=== PATIENT | female | born 1945 | race Caucasian/White ===

== ENCOUNTER → 2016-06-21 | Outpatient (CLI) | payer MEDICARE, BC ==
--- NOTE | 2016-06-22 11:14 | MM ---
Reason for exam: screening (asymptomatic). Last mammogram was performed 1 year and 3 months ago. History: Patient is postmenopausal. Family history of breast cancer in maternal aunt at age 60, breast cancer in maternal cousin at age 60, and breast cancer in mother at age 60. Benign excisional biopsy of the right breast, March 2009. Took estrogen for 7 years beginning at age 50. Physical Findings: A clinical breast exam by your physician is recommended on an annual basis and results should be correlated with mammographic findings. MG 3D Screening Mammo W/Cad Bilateral CC, MLO, and CV view(s) were taken. Prior study comparison: March 15, 2015, right breast MG 3d work up w/cad RT. March 04, 2015, bilateral MG screening mammo w CAD. November 17, 2013, bilateral MG screening mammo w CAD. The breast tissue is almost entirely fat. No significant changes when compared with prior studies. ASSESSMENT: Benign, BI-RAD 2 RECOMMENDATION: Routine screening mammogram of both breasts in 1 year.
== END | disposition home or self-care (01) ==
LOC: RADMAMWWP 07:05
PROVIDERS: ATTEND Internal Medicine
DX: Z12.31 Encounter for screening mammogram for malignant neoplasm of breast (principal)
CPT/HCPCS: 77063; G0202

== ENCOUNTER → 2017-04-05 | Outpatient (CLI) | payer MEDICARE, BC ==
--- NOTE | 2017-04-05 09:31 | US ---
EXAMINATION TYPE: US abdomen complete DATE OF EXAM: 04/05/2017 COMPARISON: NONE CLINICAL HISTORY: Periumbilical Pain R10.33. EXAM MEASUREMENTS: Liver Length: 13.5 cm Gallbladder Wall: Surgically absent cm CBD: 0.4 cm Spleen: 10.6 cm Right Kidney: 9.2x3.9x3.9 cm Left Kidney: 10.0x4.4x3.5 cm Pancreas: Obscured by bowel gas Liver: Hyperechoic hepatic echotexture. Gallbladder: Surgically absent Evidence for sonographic Luna's sign: Surgically absent CBD: wnl Spleen: wnl Right Kidney: No hydronephrosis or masses seen 1.3cm lower pole calculi Left Kidney: No hydronephrosis or masses seen possible small calculi 0.4 cm lower pole Upper IVC: Obscured by overlying bowel gas portions seen wnl Abd Aorta: Obscured by overlying bowel gas portions seen wnl The liver is homogenous. The intrahepatic portion of the IVC and proximal abdominal aorta are within normal limits. The visualized portions of the pancreas are homogenous. The spleen is unremarkable. Kidneys are symmetric and free of hydronephrosis. No renal lesions are seen. IMPRESSION: 1. Nonobstructing 1.3 cm right lower pole renal calculus. The nonshadowing 4 mm left lower pole possi ble renal calculus. 2. Slightly increased hepatic echotexture suggesting underlying mild hepatic steatosis.
== END | disposition home or self-care (01) ==
LOC: RADUSWWP 06:49
PROVIDERS: ATTEND Internal Medicine
DX: N20.0 Calculus of kidney (principal)
CPT/HCPCS: 76700

== ENCOUNTER 2017-06-22 14:00 | Inpatient (IN) | payer MEDICARE, BC ==
[2017-06-22] MEDS ORDERED: SODIUM CHLORIDE 0.9% 1,000 ML IV STA (15:37)
[2017-06-22] MEDS ORDERED: ONDANSETRON 4 MG/2 ML VIAL IVP STA (15:37)
--- NOTE | 2017-06-22 15:50 | ED ---
General Adult HPI - General Chief complaint: Skin/Abscess/Foreign Body Stated complaint: Post OP issue DX Flu Time Seen by Provider: 06/22/17 15:24 Source: patient, RN notes reviewed Mode of arrival: ambulatory Limitations: no limitations - History of Present Illness Initial comments: Patient is a 71-year-old female who presents emergency room with multiple complaints. She states she saw her family doctor was advised the emergency room. She states that she had an abscess that was drained and groin area by Dr. Henrique Guillermo back around 2016. She states that she began feeling some symptoms just 2 days ago. She does admit to a history of MRSA and was advised come here to the emergency room for further evaluation. Patient states that she was prescribed Bactrim 2 days ago along with Tamiflu. She states that she's had symptoms of nausea vomiting diarrhea over the past 2 days. It is mid to some cough congestion. Patient is to some bodyaches. Patient states she's been unable to take these medications due to nausea vomiting. She also admits to history of kidney stones does feel some pain consistent with that as well. Currently comfortable at this time does not want any pain medication. She denies any other complaints currently. Patient denies any recent fever, chills, shortness of breath, chest pain, numbness or tingling , dysuria or hematuria, constipation or diarrhea, headaches or visual changes, or any other complaints. - Related Data Home Medications Medication Instructions Recorded Confirmed Clopidogrel [Plavix] 75 mg PO DAILY 06/22/17 06/22/17 Diltiazem HCl 30 mg PO DAILY 06/22/17 06/22/17 FLUoxetine HCL [PROzac] 40 mg PO DAILY 06/22/17 06/22/17 Gabapentin [Neurontin] 100 mg PO HS 06/22/17 06/22/17 Lisinopril [Prinivil] 10 mg PO DAILY 06/22/17 06/22/17 Omeprazole [PriLOSEC] 20 mg PO AC-BRKFST 06/22/17 06/22/17 Oseltamivir [Tamiflu] 75 mg PO Q12HR 06/22/17 06/22/17 Sulfamethox-Tmp 800-160Mg [Bactrim 1 tab PO Q12HR 06/22/17 06/22/17 DS 800-160 mg] Triamterene-Hctz 37.5-25Mg 1 tab PO DAILY 06/22/17 06/22/17 [Maxzide 37.5-25] Allergies Allergy/AdvReac Type Severity Reaction Status Date / Time clindamycin Allergy Rash/Hives Verified 06/22/17 16:12 codeine Allergy Rash/Hives Verified 06/22/17 16:12 hydromorphone [From Dilaudid] Allergy Rash/Hives Verified 06/22/17 16:12 iodine Allergy Rash/Hives Verified 06/22/17 16:12 morphine Allergy Rash/Hives Verified 06/22/17 16:12 Review of Systems ROS Statement: Those systems with pertinent positive or pertinent negative responses have been documented in the HPI. ROS Other: All systems not noted in ROS Statement are negative. Past Medical History Past Medical History: Diabetes Mellitus, Hyperlipidemia, Hypertension Additional Past Medical History / Comment(s): CVA History of Any Multi-Drug Resistant Organisms: None Reported Additional Past Surgical History / Comment(s): Knees, Abscess to groin area Past Psychological History: No Psychological Hx Reported Smoking Status: Never smoker Past Alcohol Use History: None Reported Past Drug Use History: None Reported General Exam - General Exam Comments Initial Comments: General: The patient is awake and alert, in no distress, and does not appear acutely ill. Eye: Pupils are equal, round and reactive to light, extra-ocular movements are intact. No nystagmus. There is normal conjunctiva bilaterally. No signs of icterus. Ears, nose, mouth and throat: There are moist mucous membranes and no oral lesions. Neck: The neck is supple, there is no tenderness or JVD. Cardiovascular: There is a regular rate and rhythm. No murmur, rub or gallop is appreciated. Respiratory: Lungs are clear to auscultation, respirations are non-labored, breath sounds are equal. No wheezes, stridor, rales, or rhonchi. Gastrointestinal: Soft, non-distended, non-tender abdomen without masses or organomegaly noted. There is no rebound or guarding present. No CVA tenderness. Bowel sounds are unremarkable. Musculoskeletal: Normal ROM, no tenderness. Strength 5/5. Sensation intact. Pulses equal bilaterally 2+. Neurological: A&O x 3. CN II-XII intact, There are no obvious motor or sensory deficits. Coordination appears grossly intact. Speech is normal. Skin: Skin is warm and dry and no rashes or lesions are noted. Psychiatric: Cooperative, appropriate mood & affect, normal judgment. : INTERNAL MEDICINE NURSE PRACTITIONER Basilia present for exam. Patient does have small abscess left labia majora. Mild redness. Limitations: no limitations Course Vital Signs 06/22/17 06/22/17 06/22/17 14:20 16:04 17:11 Temperature 99.9 F H 99.1 F Pulse Rate 85 78 781 H Respiratory 20 20 8 L Rate Blood Pressure 166/79 126/56 133/59 O2 Sat by Pulse 99 95 97 Oximetry EKG Findings - EKG Comments: EKG Findings:: EKG performed at 1549: A 12-lead EKG was performed and interpreted by me as showing the following: Rate is 76, and rhythm is normal sinus. There are normal QRS complexes and normal R-wave progression. ST segments have no elevation or depression, and TX segments appear normal. Medical Decision Making - Medical Decision Making Patient reexamined at this time shows no signs of distress. Patient does have abscess formation consistent with a Bartholin's abscess. Patient was sent in by family doctor. She states she's had this drained 3 times surgically. Most recently from Dr. Henrique Guillermo on the outside. Patient has been trying to take antibiotic has been unable to due to symptoms of nausea vomiting. Patient feeling better here the emergency room after fluids and nausea medication. Patient will be admitted to the hospital consult to surgery. Patient will be started on antibiotics - Lab Data Result diagrams: 06/22/17 16:00 06/22/17 16:00 Lab Results 06/22/17 06/22/17 06/22/17 Range/Units 16:00 16:00 16:00 WBC 5.6 (3.8-10.6) k/uL RBC 4.90 (3.80-5.40) m/uL Hgb 13.4 (11.4-16.0) gm/dL Hct 39.4 (34.0-46.0) % MCV 80.3 (80.0-100.0) fL MCH 27.3 (25.0-35.0) pg MCHC 34.0 (31.0-37.0) g/dL RDW 15.5 (11.5-15.5) % Plt Count 206 (150-450) k/uL Neutrophils % 69 % Lymphocytes % 15 % Monocytes % 11 % Eosinophils % 1 % Basophils % 1 % Neutrophils # 3.9 (1.3-7.7) k/uL Lymphocytes # 0.9 L (1.0-4.8) k/uL Monocytes # 0.6 (0-1.0) k/uL Eosinophils # 0.1 (0-0.7) k/uL Basophils # 0.0 (0-0.2) k/uL Sodium 137 (137-145) mmol/L Potassium 3.1 L (3.5-5.1) mmol/L Chloride 94 L (98-107) mmol/L Carbon Dioxide 27 (22-30) mmol/L Anion Gap 16 mmol/L BUN 24 H (7-17) mg/dL Creatinine 1.50 H (0.52-1.04) mg/dL Est GFR (MDRD) Af Amer 42 (>60 ml/min/1.73 sqM) Est GFR (MDRD) Non-Af 34 (>60 ml/min/1.73 sqM) Glucose 103 H (74-99) mg/dL Plasma Lactic Acid Derrick 1.1 (0.7-2.0) mmol/L Calcium 9.7 (8.4-10.2) mg/dL Total Bilirubin 0.8 (0.2-1.3) mg/dL AST 41 H (14-36) U/L ALT 28 (9-52) U/L Alkaline Phosphatase 95 (38-126) U/L Total Protein 7.5 (6.3-8.2) g/dL Albumin 4.3 (3.5-5.0) g/dL Urine Color Urine Appearance (Clear) Urine pH (5.0-8.0) Ur Specific [place] (1.001-1.035) Urine Protein (Negative) Urine Glucose (UA) (Negative) Urine Ketones (Negative) Urine Blood (Negative) Urine Nitrite (Negative) Urine Bilirubin (Negative) Urine Urobilinogen (<2.0) mg/dL Ur Leukocyte Esterase (Negative) Urine RBC (0-5) /hpf Urine WBC (0-5) /hpf Ur Squamous Epith Cells (0-4) /hpf Amorphous Sediment (None) /hpf Urine Bacteria (None) /hpf Hyaline Casts (0-2) /lpf Urine Mucus (None) /hpf 06/22/17 Range/Units 16:00 WBC (3.8-10.6) k/uL RBC (3.80-5.40) m/uL Hgb (11.4-16.0) gm/dL Hct (34.0-46.0) % MCV (80.0-100.0) fL MCH (25.0-35.0) pg MCHC (31.0-37.0) g/dL RDW (11.5-15.5) % Plt Count (150-450) k/uL Neutrophils % % Lymphocytes % % Monocytes % % Eosinophils % % Basophils % % Neutrophils # (1.3-7.7) k/uL Lymphocytes # (1.0-4.8) k/uL Monocytes # (0-1.0) k/uL Eosinophils # (0-0.7) k/uL Basophils # (0-0.2) k/uL Sodium (137-145) mmol/L Potassium (3.5-5.1) mmol/L Chloride (98-107) mmol/L Carbon Dioxide (22-30) mmol/L Anion Gap mmol/L BUN (7-17) mg/dL Creatinine (0.52-1.04) mg/dL Est GFR (MDRD) Af Amer (>60 ml/min/1.73 sqM) Est GFR (MDRD) Non-Af (>60 ml/min/1.73 sqM) Glucose (74-99) mg/dL Plasma Lactic Acid Derrick (0.7-2.0) mmol/L Calcium (8.4-10.2) mg/dL Total Bilirubin (0.2-1.3) mg/dL AST (14-36) U/L ALT (9-52) U/L Alkaline Phosphatase (38-126) U/L Total Protein (6.3-8.2) g/dL Albumin (3.5-5.0) g/dL Urine Color Yellow Urine Appearance Cloudy H (Clear) Urine pH 5.0 (5.0-8.0) Ur Specific [place] 1.016 (1.001-1.035) Urine Protein 1+ H (Negative) Urine Glucose (UA) Negative (Negative) Urine Ketones Trace H (Negative) Urine Blood Trace H (Negative) Urine Nitrite Negative (Negative) Urine Bilirubin Negative (Negative) Urine Urobilinogen 2.0 (<2.0) mg/dL Ur Leukocyte Esterase Negative (Negative) Urine RBC 6 H (0-5) /hpf Urine WBC 6 H (0-5) /hpf Ur Squamous Epith Cells 11 H (0-4) /hpf Amorphous Sediment Rare H (None) /hpf Urine Bacteria Rare H (None) /hpf Hyaline Casts 36 H (0-2) /lpf Urine Mucus Rare H (None) /hpf Disposition Clinical Impression: Bartholin's gland abscess, History of MRSA infection, Nausea vomiting and diarrhea, Influenza A Disposition: ADMITTED IP TO THIS HOSP Condition: Good Time of Disposition: 17:04
[2017-06-22 16:22] LABS: Basophils % (A) 1 %; Eosinophils # (A) 0.1 k/uL (0-0.7); Eosinophils % (A) 1 %; HCT 39.4 % (34.0-46.0); HGB 13.4 gm/dL (11.4-16.0); Lymphocytes # (A) 0.9 k/uL (1.0-4.8); Lymphocytes % (A) 15 %; MCH 27.3 pg (25.0-35.0); MCV 80.3 fL (80.0-100.0); Mean Platelet Volume 7.8; Monocytes # (A) 0.6 k/uL (0-1.0); Monocytes % (A) 11 %; Neutrophils # (A) 3.9 k/uL (1.3-7.7); Neutrophils % (A) 69 %; Platelet Count 206 k/uL (150-450); RDW 15.5 % (11.5-15.5); WBC 5.6 k/uL (3.8-10.6)
[2017-06-22 16:28] LABS: Amorphous Sediment,Urine Rare /hpf; Appearance,Urine Cloudy (Clear); Bacteria,Urine Rare /hpf; Bilirubin,Urine Negative (Negative); Blood,Urine Trace (Negative); Color,Urine Yellow; Glucose,Urine (UA) Negative (Negative); Hyaline Casts,Urine 36 /lpf (0-2); Ketones,Urine Trace (Negative); Leukocyte Esterase,Urine Negative (Negative); Mucus,Urine Rare /hpf; Nitrite,Urine Negative (Negative); Protein,Urine 1+ (Negative); RBC,Urine 6 /hpf (0-5); Specific Gravity,Urine 1.016 (1.001-1.035); Squamous Epithelial Cell,Urine 11 /hpf (0-4); WBC,Urine 6 /hpf (0-5)
[2017-06-22 16:31] LABS: Albumin 4.3 g/dL (3.5-5.0); Calcium 9.7 mg/dL (8.4-10.2); Potassium 3.1 mmol/L (3.5-5.1); Total Bilirubin 0.8 mg/dL (0.2-1.3); Total Protein 7.5 g/dL (6.3-8.2)
--- NOTE | 2017-06-22 16:47 | XR ---
EXAMINATION TYPE: XR chest 2V DATE OF EXAM: 06/22/2017 COMPARISON: NONE HISTORY: Cough and congestion TECHNIQUE: Frontal and lateral views of the chest are obtained. FINDINGS: There is no heart failure nor confluent pneumonic infiltrate. Costophrenic angles are patrick r. Thoracic aorta is atheromatous. Bony thorax is intact. IMPRESSION: No active cardiopulmonary disease.
[2017-06-22] MEDS ORDERED: ACETAMINOPHEN TAB 325 MG TAB PO PRN (17:05)
[2017-06-22] MEDS ORDERED: NALOXONE 0.4 MG/ML 1 ML VIAL IV PRN (17:05)
[2017-06-22] MEDS ORDERED: LORazepam 2 MG/ML INJ IV PRN (17:05)
[2017-06-22] MEDS ORDERED: ONDANSETRON 4 MG/2 ML VIAL IVP PRN (17:05)
[2017-06-22] MEDS ORDERED: VANCOMYCIN IV PER PHARMACY 1 EACH MISC MISCELLANE PRN (18:21)
[2017-06-22] MEDS ORDERED: VANCOMYCIN 1,500 MG in SODIUM CHLORIDE 0.9% 250 ML IVPB STA (18:31)
[2017-06-22] MEDS: HYDROcodone/APAP 5-325MG 1 EACH TAB PO PRN (19:41)
[2017-06-23] MEDS: HYDROcodone/APAP 5-325MG 1 EACH TAB PO PRN ×2 (02:12→20:18)
[2017-06-23 07:56] LABS: Basophils % (A) 1 %; Eosinophils # (A) 0.1 k/uL (0-0.7); Eosinophils % (A) 4 %; HCT 36.8 % (34.0-46.0); HGB 12.3 gm/dL (11.4-16.0); Lymphocytes # (A) 0.9 k/uL (1.0-4.8); Lymphocytes % (A) 22 %; MCH 27.6 pg (25.0-35.0); MCHC 33.4 g/dL (31.0-37.0); MCV 82.7 fL (80.0-100.0); Mean Platelet Volume 7.6; Monocytes # (A) 0.4 k/uL (0-1.0); Monocytes % (A) 11 %; Neutrophils # (A) 2.4 k/uL (1.3-7.7); Neutrophils % (A) 59 %; Platelet Count 170 k/uL (150-450); RBC 4.44 m/uL (3.80-5.40); RDW 14.6 % (11.5-15.5); WBC 4.1 k/uL (3.8-10.6)
[2017-06-23 08:08] LABS: Albumin 3.5 g/dL (3.5-5.0); Calcium 9.3 mg/dL (8.4-10.2); Potassium 3.3 mmol/L (3.5-5.1); Total Bilirubin 0.7 mg/dL (0.2-1.3); Total Protein 6.4 g/dL (6.3-8.2)
[2017-06-23] MEDS ORDERED: VANCOMYCIN 1,500 MG in SODIUM CHLORIDE 0.9% 250 ML IVPB SCH (09:00)
[2017-06-23 11:17] VITALS: BMI 31.8
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
[2017-06-23] MEDS: GABAPENTIN 100 MG CAP PO SCH (20:19)
[2017-06-23] MEDS ORDERED: Potassium Replacement Protocol 1 EACH MISC MISCELLANE PRN (22:17)
[2017-06-23] MEDS: POTASSIUM CHLORIDE 10 MEQ in WATER FOR INJECTION 1 100ML.BAG IVPB SCH (22:40)
[2017-06-24] MEDS: POTASSIUM CHLORIDE 10 MEQ in WATER FOR INJECTION 1 100ML.BAG IVPB SCH (01:08)
[2017-06-24 05:24] LABS: HCT 38.1 % (34.0-46.0); HGB 12.4 gm/dL (11.4-16.0); MCH 26.8 pg (25.0-35.0); MCHC 32.6 g/dL (31.0-37.0); MCV 82.4 fL (80.0-100.0); Mean Platelet Volume 7.8; Platelet Count 193 k/uL (150-450); RBC 4.62 m/uL (3.80-5.40); RDW 14.4 % (11.5-15.5); WBC 3.3 k/uL (3.8-10.6)
[2017-06-24 05:37] LABS: Anion Gap 9 mmol/L; Blood Urea Nitrogen 21 mg/dL (7-17); Calcium 8.9 mg/dL (8.4-10.2); Carbon Dioxide 29 mmol/L (22-30); Chloride 102 mmol/L (98-107); Glucose 89 mg/dL (74-99); Potassium 3.5 mmol/L (3.5-5.1); Sodium 140 mmol/L (137-145)
[2017-06-24] MEDS: VANCOMYCIN 1,500 MG in SODIUM CHLORIDE 0.9% 250 ML IVPB SCH (07:33)
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
[2017-06-24] MEDS ORDERED: IV FLUID CONTINUATION 400 ML IV ONE (09:17)
[2017-06-24] MEDS ORDERED: LIDOCAINE 1% INJ 10MG/ML (20 ML MDV) ONE (09:17)
[2017-06-24] MEDS ORDERED: fentaNYL (PF) 50 MCG/ML 2 ML AMP ONE (09:17)
[2017-06-24] MEDS ORDERED: PROPOFOL 10 MG/ML 20 ML VIAL IV ONE (09:17)
[2017-06-24] MEDS ORDERED: MIDAZOLAM 2 MG/2 ML VIAL ONE (09:17)
[2017-06-24] MEDS ORDERED: SUCCINYLCHOLINE CHLORIDE 100 MG/5 ML SYR IV ONE (09:17)
[2017-06-24] MEDS ORDERED: LACTATED RINGERS 1,000 ML IV ONE (09:35)
--- NOTE | 2017-06-24 10:07 | P.OP ---
Date of Procedure: 06/24/17 Preoperative Diagnosis: Left labial abscess Postoperative Diagnosis: Same Procedure(s) Performed: Incision and drainage left labial abscess Anesthesia: IVELISSE Surgeon: Delmis Amado Pathology: other Condition: stable Disposition: PACU Indications for Procedure: 71 yrs old female with recurrent abscess. This time has left labial abscess Description of Procedure: Patient was placed in lithotomy position in OR after induction of anesthesia. Skin prepped with soap. 1x1x2 cm incision was made along left labia at the site of maximum fluctuance .3 cc of pus and exudates drained. Cultures sent. Cavity washed with half strength hydrogen peroxide.Hemostasis checked. Final post debridement measurement 1x1x2 cm. Packed with aquacel silver rope. Clean dressings applied.
[2017-06-24] MEDS ORDERED: MEPERIDINE 50 MG/ML SYRINGE IVP ONE ×2 (10:15→10:30)
[2017-06-24] MEDS ORDERED: diphenhydrAMINE 50 MG/ML 1 ML VIAL IVP ONE (10:15)
[2017-06-24] MEDS: KETOROLAC 30 MG/ML 1 ML VIAL IVP SCH ×3 (10:48→23:43)
[2017-06-24] MEDS: PANTOPRAZOLE 40 MG TABLET PO SCH (12:16)
[2017-06-24] MEDS: FLUoxetine HCL 20 MG CAP PO SCH (12:16)
--- NOTE | 2017-06-24 12:59 | P.PN ---
Subjective Patient was admitted for left-sided Bartholin's abscess patient underwent incision and drainage patient is clinically doing well except for some nausea. Kidney function did improve. Patient is on IV vancomycin. Pain is better controlled. Constitutional: Denied any fatigue denied any fever. Cardio vascular: denied any chest pain, palpitations Gastrointestinal denied any vomiting Pulmonary: Denied any shortness of breath cough Neurologic denied any new focal deficits Objective - Vital Signs Vital signs: Vital Signs Temp 98.3 F 06/24/17 12:11 Pulse 68 06/24/17 12:11 Resp 20 06/24/17 12:11 BP 128/67 06/24/17 12:11 Pulse Ox 95 06/24/17 12:11 Intake & Output 06/23/17 06/24/17 06/24/17 18:59 06:59 18:59 Intake Total 120 600 Output Total 4 6 Balance 120 -4 594 Weight 81.647 kg Intake: IV 600 Oral 120 Output: Urine 1 Stool 2 1 Urine/Stool Mix 1 Estimated Blood Loss 5 Other: Voiding Method Toilet Toilet Toilet # Voids 2 - Exam PHYSICAL EXAMINATION: GENERAL: The patient is alert and oriented x3, not in any acute distress. Well developed, well nourished. HEENT: Pupils are round and equally reacting to light. EOMI. No scleral icterus. No conjunctival pallor. Normocephalic, atraumatic. No pharyngeal erythema. No thyromegaly. CARDIOVASCULAR: S1 and S2 present. No murmurs, rubs, or gallops. PULMONARY: Chest is clear to auscultation, no wheezing or crackles. ABDOMEN: Soft, nontender, nondistended, normoactive bowel sounds. No palpable organomegaly. MUSCULOSKELETAL: No joint swelling or deformity. EXTREMITIES: No cyanosis, clubbing, or pedal edema. Patient is status post incision and drainage of the left inguinal area NEUROLOGICAL: Gross neurological examination did not reveal any focal deficits. SKIN: No rashes. - Labs CBC & Chem 7: 06/24/17 04:59 06/24/17 04:59 Labs: Abnormal Lab Results - Last 24 Hours (Table) 06/24/17 06/24/17 Range/Units 04:59 04:59 WBC 3.3 L (3.8-10.6) k/uL BUN 21 H (7-17) mg/dL Microbiology - Last 24 Hours (Table) 06/22/17 16:00 Blood Culture - Preliminary Blood No Growth after 24 hours Assessment and Plan Plan: -sepsis secondary to left Bartholin's abscess and patient is status post incision and drainage and patient is on IV vancomycin -Acute renal dysfunction: Secondary to hypotension, infection prerenal azotemia and diuretic therapy. Improved with IV fluids which were discontinued patient is on oral hydration -Hypertension hold off antidepressant medications because of hypotension -hypokalemia: Secondary to diuretic therapy potassium will be supplemented diuretics were held hypokalemia improved after supplementation -history of TIA in the past: Held Plavix temporarily for incision and drainage. Can be restarted tomorrow -Hyperlipidemia continue with statin
[2017-06-24] MEDS: HYDROcodone/APAP 5-325MG 1 EACH TAB PO PRN ×2 (14:15→20:24)
[2017-06-24] MEDS: GABAPENTIN 100 MG CAP PO SCH (20:21)
[2017-06-25] MEDS: KETOROLAC 30 MG/ML 1 ML VIAL IVP SCH ×4 (05:50→23:57)
[2017-06-25] MEDS ORDERED: VANCOMYCIN TROUGH DUE 1 EACH MISC MISCELLANE ONE (08:00)
[2017-06-25 08:06] LABS: Anion Gap 8 mmol/L; Blood Urea Nitrogen 21 mg/dL (7-17); Calcium 8.9 mg/dL (8.4-10.2); Carbon Dioxide 28 mmol/L (22-30); Chloride 105 mmol/L (98-107); Glucose 93 mg/dL (74-99); Potassium 3.9 mmol/L (3.5-5.1); Sodium 141 mmol/L (137-145)
[2017-06-25] MEDS: PANTOPRAZOLE 40 MG TABLET PO SCH (08:58)
[2017-06-25] MEDS: FLUoxetine HCL 20 MG CAP PO SCH (08:58)
[2017-06-25] MEDS: VANCOMYCIN 1,500 MG in SODIUM CHLORIDE 0.9% 250 ML IVPB SCH (09:01)
--- NOTE | 2017-06-25 10:24 | CDI ---
Last Revision, April 2017 Documentation Clarification Form Date: 06/25/2017 10:12:00 AM From: Omaira Duran Admit Date: 06/22/2017 5:05:00 PM Patient Name: Megan Briceño Visit Number: [id number] ATTENTION: The Clinical Documentation Specialists (CDI) and [facility] Coding Staff appreciate your assistance in clarifying documentation. Please respond to the clarification below the line at the bottom and electronically sign. The CDI & [facility] Coding staff will review the response and follow-up if needed. Please note: Queries are made part of the Legal Health Record. If you have any questions, please contact the author of this message via ITS. Dr. Elgin Damon 'Acute Renal Dysfunction' was documented in the H&P and Progress note on 06/24. History/Risk Factors: Sepsis / abscess Patient has had nausea, vomiting, diarrhea for 2 days Positive Influenza A Diuretic therapy - currently being held per H&P Clinical Indicators: BUN/Cr/GFR on admission: 24/1.50/34 on 18: 21/0.99/56 Treatment: IV Fluid bolus Lab Monitoring Diuretic therapy held In order to capture the severity of condition, please clarify if the condition signifies: Acute renal failure Other, please specify Unable to determine Please continue to document in your progress notes and discharge summary in order to capture severity of illness and risk of mortality. Include clinical findings that support your diagnosis. Please refer to my progress note MTDD
--- NOTE | 2017-06-25 11:12 | P.PN ---
Subjective Patient was admitted for left-sided Bartholin's abscess patient underwent incision and drainage patient is clinically doing well except for some nausea. Kidney function did improve. Patient is on IV vancomycin. Pain is better controlled. 06/25/2017 Patient is clinically doing well and kidney function improved awaiting wound cultures continue with vancomycin. Constitutional: Denied any fatigue denied any fever. Cardio vascular: denied any chest pain, palpitations Gastrointestinal denied any vomiting Pulmonary: Denied any shortness of breath cough Neurologic denied any new focal deficits Objective - Vital Signs Vital signs: Vital Signs Temp 97.9 F 06/25/17 07:00 Pulse 67 06/25/17 07:00 Resp 18 06/25/17 07:00 BP 145/75 06/25/17 07:00 Pulse Ox 95 06/25/17 07:00 Intake & Output 06/24/17 06/25/17 06/25/17 18:59 06:59 18:59 Intake Total 960 100 Output Total 8 Balance 952 100 Intake: IV 600 Oral 360 100 Output: Urine 1 Stool 2 Estimated Blood Loss 5 Other: Voiding Method Toilet Toilet # Voids 3 2 - Exam PHYSICAL EXAMINATION: GENERAL: The patient is alert and oriented x3, not in any acute distress. Well developed, well nourished. HEENT: Pupils are round and equally reacting to light. EOMI. No scleral icterus. No conjunctival pallor. Normocephalic, atraumatic. No pharyngeal erythema. No thyromegaly. CARDIOVASCULAR: S1 and S2 present. No murmurs, rubs, or gallops. PULMONARY: Chest is clear to auscultation, no wheezing or crackles. ABDOMEN: Soft, nontender, nondistended, normoactive bowel sounds. No palpable organomegaly. MUSCULOSKELETAL: No joint swelling or deformity. EXTREMITIES: No cyanosis, clubbing, or pedal edema. Patient is status post incision and drainage of the left inguinal area NEUROLOGICAL: Gross neurological examination did not reveal any focal deficits. SKIN: No rashes. - Labs CBC & Chem 7: 06/24/17 04:59 06/25/17 07:31 Labs: Abnormal Lab Results - Last 24 Hours (Table) 06/25/17 Range/Units 07:31 BUN 21 H (7-17) mg/dL Microbiology - Last 24 Hours (Table) 06/24/17 09:37 Gram Stain - Preliminary Labia Wound Culture - Preliminary 06/24/17 09:37 Anaerobic Culture - Preliminary Labia 06/22/17 16:00 Blood Culture - Preliminary Blood No Growth after 48 hours Assessment and Plan Plan: -sepsis secondary to left Bartholin's abscess and patient is status post incision and drainage and patient is on IV vancomycin -Acute renal dysfunction: Secondary to hypotension, infection prerenal azotemia and diuretic therapy. Improved with IV fluids which were discontinued patient is on oral hydration. -Hypertension hold off antidepressant medications because of hypotension -hypokalemia: Secondary to diuretic therapy potassium will be supplemented diuretics were held hypokalemia improved after supplementation -history of TIA in the past: Held Plavix temporarily for incision and drainage. Can be restarted tomorrow -Hyperlipidemia continue with statin
--- NOTE | 2017-06-25 13:12 | P.PN ---
Subjective Progress Note Date: 06/25/17 71-year-old female seen and examined at bedside. The packing was removed from the left side labia were patient had undergone an incision and drainage for left -sided batholin abscess. Patient states there is less discomfort in the clinical area. Wound cultures are pending. Wound care to the left labia packing using Aquacel silver rope change every 24 hours was reinforced with the patient Objective - Vital Signs Vital signs: Vital Signs Temp 97.9 F 06/25/17 07:00 Pulse 67 06/25/17 08:00 Resp 18 06/25/17 08:00 BP 145/75 06/25/17 07:00 Pulse Ox 95 06/25/17 07:00 Intake & Output 06/24/17 06/25/17 06/25/17 18:59 06:59 18:59 Intake Total 960 100 Output Total 8 1 Balance 952 100 -1 Intake: IV 600 Oral 360 100 Output: Urine 1 Stool 2 1 Estimated Blood Loss 5 Other: Voiding Method Toilet Toilet Toilet # Voids 3 2 - Exam Focused exam Left labia packing was removed decrease tenderness decreased swelling at surgical site no odor noted patient states noted improvement. The left labia incision and drainage site packing reapplied using Aquacel silver rope - Labs CBC & Chem 7: 06/24/17 04:59 06/26/17 07:24 Labs: Abnormal Lab Results - Last 24 Hours (Table) 06/25/17 Range/Units 07:31 BUN 21 H (7-17) mg/dL Microbiology - Last 24 Hours (Table) 06/24/17 09:37 Gram Stain - Preliminary Labia Wound Culture - Preliminary 06/24/17 09:37 Anaerobic Culture - Preliminary Labia 06/22/17 16:00 Blood Culture - Preliminary Blood No Growth after 48 hours Assessment and Plan Assessment: Impression Present on admission left labia pain and swelling onset 3 days prior failed outpatient treatment Bactrim Incision and drainage done on June 24 left labia abscess History of right labia abscess incision and drainage in March 2017 Plan Wound care left labia use Aquacel silver rope change every 24 hours Follow up on the pending wound cultures Pain control IV vancomycin as ordered Will sign off follow-up in the outpatient setting Progress note dictated for Dr. bowens The above impression and plan of care have been discussed and directed by signing physician. Jillian Black nurse practitioner acting as scribe for signing physician.
[2017-06-25] MEDS: HYDROcodone/APAP 5-325MG 1 EACH TAB PO PRN (20:00)
[2017-06-25] MEDS: GABAPENTIN 100 MG CAP PO SCH (20:00)
[2017-06-25] MEDS: ALBUTEROL NEBULIZED 2.5 MG/3 ML INHALATION SCH (20:02)
[2017-06-26] MEDS: KETOROLAC 30 MG/ML 1 ML VIAL IVP SCH ×4 (06:45→23:22)
[2017-06-26 07:59] LABS: Anion Gap 8 mmol/L; Blood Urea Nitrogen 17 mg/dL (7-17); Calcium 8.8 mg/dL (8.4-10.2); Carbon Dioxide 29 mmol/L (22-30); Chloride 105 mmol/L (98-107); Glucose 99 mg/dL (74-99); Potassium 3.4 mmol/L (3.5-5.1); Sodium 142 mmol/L (137-145)
[2017-06-26] MEDS: PANTOPRAZOLE 40 MG TABLET PO SCH (08:13)
[2017-06-26] MEDS: VANCOMYCIN 1,500 MG in SODIUM CHLORIDE 0.9% 250 ML IVPB SCH (08:13)
[2017-06-26] MEDS: FLUoxetine HCL 20 MG CAP PO SCH (08:13)
[2017-06-26] MEDS: ALBUTEROL NEBULIZED 2.5 MG/3 ML INHALATION SCH ×4 (09:12→19:30)
[2017-06-26] MEDS ORDERED: POTASSIUM CHLORIDE ER 20 MEQ TAB.ER PO STA (11:12)
--- NOTE | 2017-06-26 11:35 | P.PN ---
Subjective Patient was admitted for left-sided Bartholin's abscess patient underwent incision and drainage patient is clinically doing well except for some nausea. Kidney function did improve. Patient is on IV vancomycin. Pain is better controlled. 06/25/2017 Patient is clinically doing well and kidney function improved awaiting wound cultures continue with vancomycin. 06/26/2017 Awaiting wound cultures patient is otherwise clinically doing well patient has MRSA since studies are pending Constitutional: Denied any fatigue denied any fever. Cardio vascular: denied any chest pain, palpitations Gastrointestinal denied any vomiting Pulmonary: Denied any shortness of breath cough Neurologic denied any new focal deficits Objective - Vital Signs Vital signs: Vital Signs Temp 98 F 06/25/17 23:00 Pulse 64 06/26/17 09:22 Resp 18 06/26/17 08:00 BP 132/78 06/26/17 07:00 Pulse Ox 98 06/26/17 07:00 Intake & Output 06/25/17 06/26/17 06/26/17 18:59 06:59 18:59 Intake Total 650 540 Output Total 2 Balance 648 540 Weight 81.647 kg Intake: Intake, IV Titration 250 Amount Vancomycin 1,500 mg In 250 Sodium Chloride 0.9% 250 ml @ 125 mls/hr IVPB Q24HR [facility] Rx#:[id number] Oral 400 540 Output: Stool 2 Other: Voiding Method Toilet Toilet Toilet # Voids 2 - Exam PHYSICAL EXAMINATION: GENERAL: The patient is alert and oriented x3, not in any acute distress. Well developed, well nourished. HEENT: Pupils are round and equally reacting to light. EOMI. No scleral icterus. No conjunctival pallor. Normocephalic, atraumatic. No pharyngeal erythema. No thyromegaly. CARDIOVASCULAR: S1 and S2 present. No murmurs, rubs, or gallops. PULMONARY: Chest is clear to auscultation, no wheezing or crackles. ABDOMEN: Soft, nontender, nondistended, normoactive bowel sounds. No palpable organomegaly. MUSCULOSKELETAL: No joint swelling or deformity. EXTREMITIES: No cyanosis, clubbing, or pedal edema. Patient is status post incision and drainage of the left inguinal area NEUROLOGICAL: Gross neurological examination did not reveal any focal deficits. SKIN: No rashes. - Labs CBC & Chem 7: 06/24/17 04:59 06/26/17 07:24 Labs: Abnormal Lab Results - Last 24 Hours (Table) 06/26/17 Range/Units 07:24 Potassium 3.4 L (3.5-5.1) mmol/L Microbiology - Last 24 Hours (Table) 06/24/17 09:37 Gram Stain - Preliminary Labia Wound Culture - Preliminary Presumptive MRSA 06/22/17 16:00 Blood Culture - Preliminary Blood No Growth after 72 hours Assessment and Plan Plan: -sepsis secondary to left Bartholin's abscess and patient is status post incision and drainage and patient is on IV vancomycin -Acute renal dysfunction: Secondary to hypotension, infection prerenal azotemia and diuretic therapy. Improved with IV fluids which were discontinued patient is on oral hydration. -Hypertension hold off antidepressant medications because of hypotension -hypokalemia: Secondary to diuretic therapy potassium will be supplemented diuretics were held hypokalemia improved after supplementation -history of TIA in the past: Held Plavix temporarily for incision and drainage. Plavix will be restarted today -Hyperlipidemia continue with statin
--- NOTE | 2017-06-26 13:04 | P.PN ---
Subjective Progress Note Date: 06/26/17 71-year-old female seen and examined. Patient states there is less swelling in the labia on the left side. Patient states is less tenderness as well. Urinating no difficulty. No frequent stooling. Patient is postop incision and drainage of a left sided Bartholin abscess wound culture presumptive MRSA on a preliminary Objective - Vital Signs Vital signs: Vital Signs Temp 98 F 06/25/17 23:00 Pulse 68 06/26/17 12:18 Resp 18 06/26/17 08:00 BP 132/78 06/26/17 07:00 Pulse Ox 98 06/26/17 07:00 Intake & Output 06/25/17 06/26/17 06/26/17 18:59 06:59 18:59 Intake Total 650 540 Output Total 2 Balance 648 540 Weight 81.647 kg Intake: Intake, IV Titration 250 Amount Vancomycin 1,500 mg In 250 Sodium Chloride 0.9% 250 ml @ 125 mls/hr IVPB Q24HR [facility] Rx#:[id number] Oral 400 540 Output: Stool 2 Other: Voiding Method Toilet Toilet Toilet # Voids 2 - Exam Focused exam The left labia incision and drainage site packing reapplied using Aquacel silver rope patient states less tenderness less swelling from the left labia has been up to the shower - Labs CBC & Chem 7: 06/24/17 04:59 06/26/17 07:24 Labs: Abnormal Lab Results - Last 24 Hours (Table) 06/26/17 Range/Units 07:24 Potassium 3.4 L (3.5-5.1) mmol/L Microbiology - Last 24 Hours (Table) 06/24/17 09:37 Gram Stain - Preliminary Labia Wound Culture - Preliminary Presumptive MRSA 06/22/17 16:00 Blood Culture - Preliminary Blood No Growth after 72 hours Assessment and Plan Assessment: Impression Present on admission left labia pain and swelling onset 3 days prior failed outpatient treatment Bactrim Incision and drainage done on June 24 left labia abscess History of right labia abscess incision and drainage in March 2017 Plan Wound care left labia use Aquacel silver rope change every 24 hours Follow up on the pending wound cultures Pain control At the time of discharge Bactrim DS one tablet twice a day for 10 days Will sign off follow-up in the outpatient setting Progress note dictated for Dr. bowens The above impression and plan of care have been discussed and directed by signing physician. Jillian Black nurse practitioner acting as scribe for signing physician.
[2017-06-26] MEDS: HYDROcodone/APAP 5-325MG 1 EACH TAB PO PRN ×2 (16:01→20:17)
[2017-06-26] MEDS: GABAPENTIN 100 MG CAP PO SCH (20:18)
[2017-06-26 23:18] VITALS: RESP 16
[2017-06-27] MEDS: KETOROLAC 30 MG/ML 1 ML VIAL IVP SCH ×2 (05:24→11:43)
--- NOTE | 2017-06-27 07:26 | CDI ---
Last Revision, April 2017 Documentation Clarification Form Date: 06/25/2017 10:12:00 AM From: Omaira Duran Admit Date: 06/22/2017 5:05:00 PM Patient Name: Megan Briceño Visit Number: [id number] ATTENTION: The Clinical Documentation Specialists (CDI) and [facility] Coding Staff appreciate your assistance in clarifying documentation. Please respond to the clarification below the line at the bottom and electronically sign. The CDI & [facility] Coding staff will review the response and follow-up if needed. Please note: Queries are made part of the Legal Health Record. If you have any questions, please contact the author of this message via ITS. Dr. Elgin Damon 'Acute Renal Dysfunction' was documented in the H&P and Progress note on 06/24. Continuing to document the same through to 06/26. History/Risk Factors: Sepsis 06/22 abscess Patient has had nausea, vomiting, diarrhea for 2 days Positive Influenza A Diuretic therapy - currently being held per H&P Clinical Indicators: BUN/Cr/GFR on admission: 24/1.50/34 on 18: 21/0.99/56 Treatment: IV Fluid bolus Lab Monitoring Diuretic therapy held In order to capture the severity of condition, please clarify if the condition signifies: Acute renal failure Other, please specify Unable to determine Please continue to document in your progress notes and discharge summary in order to capture severity of illness and risk of mortality. Include clinical findings that support your diagnosis. Acute renal failure due to diuretics and Bactrim MTDD
[2017-06-27 07:47] VITALS: TEMP 97.6
[2017-06-27] MEDS: PANTOPRAZOLE 40 MG TABLET PO SCH (08:03)
[2017-06-27] MEDS: VANCOMYCIN 1,500 MG in SODIUM CHLORIDE 0.9% 250 ML IVPB SCH (08:03)
[2017-06-27] MEDS: FLUoxetine HCL 20 MG CAP PO SCH (08:03)
[2017-06-27] MEDS: ALBUTEROL NEBULIZED 2.5 MG/3 ML INHALATION SCH ×3 (08:31→16:43)
[2017-06-27] MEDS ORDERED: CLOPIDOGREL 75 MG TAB PO SCH (09:00)
[2017-06-27 09:03] LABS: Anion Gap 8 mmol/L; Blood Urea Nitrogen 18 mg/dL (7-17); Calcium 8.7 mg/dL (8.4-10.2); Carbon Dioxide 28 mmol/L (22-30); Chloride 106 mmol/L (98-107); Glucose 97 mg/dL (74-99); Potassium 3.6 mmol/L (3.5-5.1); Sodium 142 mmol/L (137-145)
[2017-06-27 15:20] VITALS: BP 132/68; PULSE 79
--- NOTE | 2017-06-27 16:58 | P.DS ---
Providers Date of admission: 06/22/17 17:05 Expected date of discharge: 06/27/17 Attending physician: Elgin Damon Consults: 06/23/17 09:19 Consult Physician Routine Consulting Provider: Marce Cruz Consult Reason/Comments: bartholins Abscess Do you want consulting provider notified?: Already Contacted Primary care physician: Letitia Worthington Hospital Course: Final Diagnoses: -sepsis secondary to left Bartholin's abscess with MRSA,status post incision and drainage and patient is on IV vancomycin -Acute renal dysfunction: Secondary to hypotension, infection prerenal azotemia and diuretic therapy. Improved with IV fluids which were discontinued patient is on oral hydration. -Hypertension hold off antidepressant medications because of hypotension -hypokalemia: Secondary to diuretic therapy potassium will be supplemented diuretics were held hypokalemia improved after supplementation -history of TIA on plavix -Hyperlipidemia continue with statin Hospital course:Patient was admitted for left-sided Bartholin's abscess patient underwent incision and drainage. Maintained on IV vancomycin. Kidney function improved. Maintained on IV fluid hydration and IV vancomycin. Wound culture positive for MRSA. Significant clinical improvement.. Initially on admission patient presented with mild acute renal failure and had been on Bactrim DS. Considered discharging on Cipro; discussed with infectious disease-given Cipro failure, will send home on Bactrim DS and repeat BMP in 3 days for close monitoring of renal function. Physical Exam:VSS,GENERAL: alert and oriented x3, not in any acute distress.CARDIOVASCULAR: S1 and S2 present. No murmurs, rubs, or gallops. PULMONARY: Chest is clear to auscultation, no wheezing or crackles. ABDOMEN: Soft, nontender, nondistended, normoactive bowel sounds. NEUROLOGICAL: Gross neurological examination did not reveal any focal deficits. The impression and plan of care has been dictated as directed. : I performed a history and examination of this patient, discussed the same with the dictator. I agree with the dictator's note ,documented as a scribe. Any additional findings or plans will be noted. Time taken: Greater than 35 minutes Patient Condition at Discharge: Stable Plan - Discharge Summary Discharge Rx Participant: Yes New Discharge Prescriptions: New Sulfamethox-Tmp 800-160Mg [Bactrim DS 800-160 mg] 1 tab PO BID #20 tab Continue Clopidogrel [Plavix] 75 mg PO DAILY Omeprazole [PriLOSEC] 20 mg PO AC-BRKFST Gabapentin [Neurontin] 100 mg PO HS FLUoxetine HCL [PROzac] 40 mg PO DAILY Discontinued Triamterene-Hctz 37.5-25Mg [Maxzide 37.5-25] 1 tab PO DAILY Lisinopril [Prinivil] 10 mg PO DAILY Sulfamethox-Tmp 800-160Mg [Bactrim DS 800-160 mg] 1 tab PO Q12HR Oseltamivir [Tamiflu] 75 mg PO Q12HR Diltiazem HCl 30 mg PO DAILY Discharge Medication List Clopidogrel [Plavix] 75 mg PO DAILY 06/22/17 [History] FLUoxetine HCL [PROzac] 40 mg PO DAILY 06/22/17 [History] Gabapentin [Neurontin] 100 mg PO HS 06/22/17 [History] Omeprazole [PriLOSEC] 20 mg PO AC-BRKFST 06/22/17 [History] Sulfamethox-Tmp 800-160Mg [Bactrim DS 800-160 mg] 1 tab PO BID #20 tab 06/27/17 [Rx] Follow up Appointment(s)/Referral(s): Delmis Bowens MD [STAFF PHYSICIAN] - 07/03/17 11:30 am Letitia Worthington MD [Primary Care Provider] - 07/04/17 11:00 am Ambulatory/Diagnostic Orders: Complete Blood Count w/diff [LAB.AMB] Time Frame: 3 Days, Location: Determined By Patient Patient Instructions/Handouts: Bartholin Cyst (GEN), Incision and Drainage (DC) Activity/Diet/Wound Care/Special Instructions: Cancel office visit June [address] Lydia Mcclure. Schedule doctor's office visit with Dr. bowens for July 03 Wound care left labia packing use Aquacel silver rope change every 24 hours Shower daily no tub bath Diet: Cardiac Activity: Limited TIll F/U
== END 2017-06-27 17:09 | disposition home or self-care (01) | DRG 872 ==
LOC: EC 14:00 → 5MS5E 17:05 → UNDOADMIN 17:21 → 5MS5E 17:21
PROVIDERS: ADMIT Internal Medicine; ATTEND Internal Medicine
PROC: 0H9AXZZ Drainage of Inguinal Skin, External Approach (ICD-10-PCS; principal; 2017-06-24 09:00)
DX: A41.02 Sepsis due to Methicillin resistant Staphylococcus aureus (principal); N17.9 Acute kidney failure, unspecified; E11.9 Type 2 diabetes mellitus without complications; E78.5 Hyperlipidemia, unspecified; E87.6 Hypokalemia; N75.1 Abscess of Bartholin's gland; G47.30 Sleep apnea, unspecified; I10 Essential (primary) hypertension; J10.1 Influenza due to other identified influenza virus with other respiratory manifestations; K21.9 Gastro-esophageal reflux disease without esophagitis; M79.7 Fibromyalgia; T50.2X5A Adverse effect of carbonic-anhydrase inhibitors, benzothiadiazides and other diuretics, initial encounter; Z79.02 Long term (current) use of antithrombotics/antiplatelets; Z80.3 Family history of malignant neoplasm of breast; Z82.49 Family history of ischemic heart disease and other diseases of the circulatory system; Z83.3 Family history of diabetes mellitus; Z85.828 Personal history of other malignant neoplasm of skin; Z86.73 Personal history of transient ischemic attack (TIA), and cerebral infarction without residual deficits; Z87.442 Personal history of urinary calculi; Z90.710 Acquired absence of both cervix and uterus; Z79.899 Other long term (current) drug therapy; Z88.5 Allergy status to narcotic agent; Z88.1 Allergy status to other antibiotic agents; Z88.3 Allergy status to other anti-infective agents
CPT/HCPCS: 36415; 71046; 80048; 80053; 80202; 81001; 83605; 85025; 85027; 87040; 87070; 87075; 87077; 87186; 87205; 87502; 93005; 94640; 96361; 96374; 99284

== ENCOUNTER → 2017-10-01 | Outpatient (CLI) | payer MEDICARE, BC ==
--- NOTE | 2017-10-02 13:57 | MM ---
Reason for exam: screening (asymptomatic). Last mammogram was performed 1 year and 3 months ago. History: Patient is postmenopausal. Family history of breast cancer in maternal aunt at age 60, breast cancer in maternal cousin at age 60, and breast cancer in mother at age 60. Benign excisional biopsy of the right breast, March 2009. Took estrogen for 7 years beginning at age 50. Physical Findings: A clinical breast exam by your physician is recommended on an annual basis and results should be correlated with mammographic findings. MG 3D Screening Mammo W/Cad Bilateral CC and MLO view(s) were taken. Prior study comparison: June 21, 2016, bilateral MG 3d screening mammo w/cad. March 15, 2015, right breast MG 3d work up w/cad RT. There are scattered fibroglandular densities. No suspicious abnormality. Right upper outer quadrant biopsy marker noted. No significant changes when compared with prior studies. ASSESSMENT: Negative, BI-RAD 1 RECOMMENDATION: Routine screening mammogram of both breasts in 1 year.
== END | disposition home or self-care (01) ==
LOC: RADMAMWWP 13:55
PROVIDERS: ATTEND Internal Medicine
DX: Z12.31 Encounter for screening mammogram for malignant neoplasm of breast (principal)
CPT/HCPCS: 77063; 77067

== ENCOUNTER → 2017-10-01 | Outpatient (CLI) | payer MEDICARE, BC ==
--- NOTE | 2017-10-01 14:17 | US ---
EXAMINATION TYPE: US kidneys/renal and bladder DATE OF EXAM: 10/01/2017 COMPARISON: Previous dated 04/05/2017 CLINICAL HISTORY: R31 Hematuria. EXAM MEASUREMENTS: Right Kidney: 9.8 x 3.9 x 4.2 cm Left Kidney: 9.8 x 3.8 x 4.4 cm Right Kidney: lower pole stone 1.3 x 0.5 x 1.3cm Left Kidney: Possible stones, mid measuring 0.3 x 0.2 x 0.2, lower pole measuring 0.2 x 0.2 x 0.3cm Bladder: not well seen, not fully distended Echogenic focus midpole the right kidney shows a similar appearance to prior exam. Lower pole echogen ic foci in the left kidney show a similar appearance. No evident hydronephrosis. Cortical medullary d ifferentiation is maintained. IMPRESSION: Nephrolithiasis is stable.
== END | disposition home or self-care (01) ==
LOC: RADUSWWP 13:21
PROVIDERS: ATTEND Internal Medicine
DX: N20.0 Calculus of kidney (principal)
CPT/HCPCS: 76770

== ENCOUNTER 2017-10-19 18:05 | Emergency (ER) | payer MEDICARE, BC ==
[2017-10-19 18:36] VITALS: RESP 18
[2017-10-19] MEDS ORDERED: KETOROLAC 30 MG/ML 1 ML VIAL IVP STA (19:08)
[2017-10-19] MEDS ORDERED: SODIUM CHLORIDE 0.9% 1,000 ML IV ONE (19:08)
[2017-10-19 19:23] LABS: Appearance,Urine Clear (Clear); Bacteria,Urine Rare /hpf; Bilirubin,Urine Negative (Negative); Blood,Urine Small (Negative); Color,Urine Light Yellow; Glucose,Urine (UA) Negative (Negative); Ketones,Urine Negative (Negative); Leukocyte Esterase,Urine Negative (Negative); Mucus,Urine Rare /hpf; Nitrite,Urine Negative (Negative); Protein,Urine Negative (Negative); RBC,Urine 4 /hpf (0-5); Specific Gravity,Urine 1.009 (1.001-1.035); Squamous Epithelial Cell,Urine <1 /hpf (0-4); Urobilinogen,Urine <2.0 mg/dL (<2.0); WBC,Urine 1 /hpf (0-5)
[2017-10-19 19:43] LABS: Albumin 4.3 g/dL (3.5-5.0); Calcium 9.6 mg/dL (8.4-10.2); Potassium 3.4 mmol/L (3.5-5.1); Total Bilirubin 0.5 mg/dL (0.2-1.3); Total Protein 7.4 g/dL (6.3-8.2)
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
[2017-10-19 20:26] LABS: Basophils % (A) 1 %; Eosinophils # (A) 0.3 k/uL (0-0.7); Eosinophils % (A) 4 %; HCT 40.4 % (34.0-46.0); HGB 13.4 gm/dL (11.4-16.0); Lymphocytes # (A) 1.6 k/uL (1.0-4.8); Lymphocytes % (A) 22 %; MCH 26.7 pg (25.0-35.0); MCHC 33.2 g/dL (31.0-37.0); MCV 80.4 fL (80.0-100.0); Mean Platelet Volume 7.4; Monocytes # (A) 0.6 k/uL (0-1.0); Monocytes % (A) 8 %; Neutrophils # (A) 4.7 k/uL (1.3-7.7); Neutrophils % (A) 64 %; Platelet Count 248 k/uL (150-450); RBC 5.03 m/uL (3.80-5.40); RDW 14.6 % (11.5-15.5); WBC 7.3 k/uL (3.8-10.6)
--- NOTE | 2017-10-19 22:00 | CT ---
EXAMINATION TYPE: CT abdomen pelvis wo con DATE OF EXAM: 10/19/2017 HISTORY: Boil to left labia. Pain. CT DLP: 936.2 mGycm. Automated Exposure Control for Dose Reduction was Utilized. TECHNIQUE: CT scan of the abdomen and pelvis is performed without oral or IV contrast. COMPARISON: NONE FINDINGS: Within the limitations of a non-contrast study, the following observations are made. LUNG BASES: No significant abnormality is appreciated. LIVER/GB: Cholecystectomy clips are noted. PANCREAS: No significant abnormality is seen. SPLEEN: No significant abnormality is seen. ADRENALS: No significant abnormality is seen. KIDNEYS: There is 9 mm calculus anteriorly in calyx lower pole level right kidney axial image 39. Enrike e cortical thinning in both kidneys is present. No hydronephrosis is seen bilaterally. Occasional pel anatoliy phlebolith is present. BOWEL: Normal-appearing appendix is incidentally seen from base of cecum in the right upper pelvis. GENITAL ORGANS: Uterus is presumed surgically absent. There is mild ill-defined fat stranding in the right labia without focal fluid collection seen inferiorly best near skin surface coronal image 22. LYMPH NODES: No greater than 1cm abdominal or pelvic lymph nodes are appreciated. OSSEOUS STRUCTURES: No significant abnormality is seen. OTHER: No significant additional abnormality is seen. IMPRESSION: Mild inflammatory change right labia subcutaneous tissue. No well-formed fluid collection or abscess.
[2017-10-19] MEDS ORDERED: SULFAMETH-TMP DS STARTER PACK 2 TAB BTL PO STA (22:48)
[2017-10-19 23:04] VITALS: BP 136/63; PULSE 60; TEMP 98
--- NOTE | 2017-10-22 05:48 | CDI ---
Documentation Clarification OP Dear Silvia COLEMAN NPC As reviewed the procedure, I&D procedure is missing. Please provide addendum for I&D procedure. Thank you, Mariel Tsai [employer] Scientist If you have any question, Please contact business affairs manager at [phone] [id number]
--- NOTE | 2017-10-26 18:50 | ED ---
Medical Decision Making - Lab Data Result diagrams: 10/19/17 19:21 10/19/17 19:21 Lab Results 10/19/17 10/19/17 10/19/17 Range/Units 19:00 19:21 19:21 WBC 7.3 (3.8-10.6) k/uL RBC 5.03 (3.80-5.40) m/uL Hgb 13.4 (11.4-16.0) gm/dL Hct 40.4 (34.0-46.0) % MCV 80.4 (80.0-100.0) fL MCH 26.7 (25.0-35.0) pg MCHC 33.2 (31.0-37.0) g/dL RDW 14.6 (11.5-15.5) % Plt Count 248 (150-450) k/uL Neutrophils % 64 % Lymphocytes % 22 % Monocytes % 8 % Eosinophils % 4 % Basophils % 1 % Neutrophils # 4.7 (1.3-7.7) k/uL Lymphocytes # 1.6 (1.0-4.8) k/uL Monocytes # 0.6 (0-1.0) k/uL Eosinophils # 0.3 (0-0.7) k/uL Basophils # 0.0 (0-0.2) k/uL Sodium 141 (137-145) mmol/L Potassium 3.4 L (3.5-5.1) mmol/L Chloride 101 (98-107) mmol/L Carbon Dioxide 25 (22-30) mmol/L Anion Gap 15 mmol/L BUN 19 H (7-17) mg/dL Creatinine 1.16 H (0.52-1.04) mg/dL Est GFR (CKD-EPI)AfAm 56 (>60 ml/min/1.73 sqM) Est GFR (CKD-EPI)NonAf 48 (>60 ml/min/1.73 sqM) Glucose 149 H (74-99) mg/dL Calcium 9.6 (8.4-10.2) mg/dL Total Bilirubin 0.5 (0.2-1.3) mg/dL AST 22 (14-36) U/L ALT 21 (9-52) U/L Alkaline Phosphatase 79 (38-126) U/L Total Protein 7.4 (6.3-8.2) g/dL Albumin 4.3 (3.5-5.0) g/dL Amylase 68 (30-110) U/L Lipase 229 (23-300) U/L Urine Color Light Yellow Urine Appearance Clear (Clear) Urine pH 5.0 (5.0-8.0) Ur Specific [place] 1.009 (1.001-1.035) Urine Protein Negative (Negative) Urine Glucose (UA) Negative (Negative) Urine Ketones Negative (Negative) Urine Blood Small H (Negative) Urine Nitrite Negative (Negative) Urine Bilirubin Negative (Negative) Urine Urobilinogen <2.0 (<2.0) mg/dL Ur Leukocyte Esterase Negative (Negative) Urine RBC 4 (0-5) /hpf Urine WBC 1 (0-5) /hpf Ur Squamous Epith Cells <1 (0-4) /hpf Urine Bacteria Rare H (None) /hpf Urine Mucus Rare H (None) /hpf Disposition Clinical Impression: Labial abscess, Abdominal pain Disposition: HOME SELF-CARE Condition: Good Instructions: Abscess Incision and Drainage (ED), Abscess (ED), Abdominal Pain (ED), Warm Compress or Soak (ED) Additional Instructions: Increase fluids. Do warm compresses/soaks to the abscess region. Complete antibiotics as prescribed. Take probiotic or eat yogurt daily with this. Follow-up with your primary care physician for recheck in 1-2 days. Follow-up with her surgeon as soon as possible for reevaluation of the abscess. Return here immediately for any new, worsening, or concerning symptoms. Prescriptions: Sulfamethoxazole/Trimethoprim [Bactrim DS 800-160 mg] 1 each PO BID #20 tablet Is patient prescribed a controlled substance at d/c from ED?: No Referrals: Jessica Roland MD [STAFF PHYSICIAN] - 1-2 days Letitia Worthington MD [Primary Care Provider] - 1-2 days Procedures - Incision & Drainage Consent Obtained: verbal consent Time Out Performed?: Yes Site: vulva/vagina (Right labia) Size (cm): 2 Anesthetic Used: lidocaine 1% Amount (mLs): 3 I&D Cleaning Method: Betadine Scalpel Used: #11 Needle Aspiration Performed?: No Irrigation Performed?: No I&D Drainage Obtained: Pus, Blood Culture Obtained?: No Patient Tolerated Procedure: well
== END 2017-10-19 23:03 | disposition home or self-care (01) ==
LOC: EC 18:05
DX: N76.4 Abscess of vulva (principal); N20.0 Calculus of kidney; K21.9 Gastro-esophageal reflux disease without esophagitis; I10 Essential (primary) hypertension; Z85.828 Personal history of other malignant neoplasm of skin; Z86.73 Personal history of transient ischemic attack (TIA), and cerebral infarction without residual deficits; Z86.14 Personal history of Methicillin resistant Staphylococcus aureus infection; Z87.442 Personal history of urinary calculi; Z79.899 Other long term (current) drug therapy; Z79.01 Long term (current) use of anticoagulants; Z88.1 Allergy status to other antibiotic agents; Z88.5 Allergy status to narcotic agent; Z88.8 Allergy status to other drugs, medicaments and biological substances; Z90.49 Acquired absence of other specified parts of digestive tract; Z95.818 Presence of other cardiac implants and grafts
CPT/HCPCS: 36415; 80053; 82150; 83690; 85025; 81001; 74176; 99284; 56405; 96374; 96361; J1885

== ENCOUNTER → 2018-04-23 | Outpatient (CLI) | payer MEDICARE, BC ==
[2018-04-23 13:00] LABS: Potassium 4.1 mmol/L (3.5-5.1)
--- NOTE | 2018-04-23 13:28 | XR ---
Abdomen HISTORY: Renal calculus Frontal view of the abdomen on [address] abdomen pelvis 10/19/2017 Calcifications in the right hemipelvis represent phleboliths. There are 2 small calculi superimposed over the lower pole the right kidney measuring approximately 2-3 mm. Surgical clips are present in th e right upper quadrant. Lung bases are clear. No evident bowel obstruction or pneumoperitoneum. Degen erative disc changes in the visualized spine. IMPRESSION: Smaller fragments in the lower pole the right kidney possibly due to post lithotripsy elisa schwarz
== END ==
LOC: RADXRMAIN 10:29
PROVIDERS: ATTEND Urology
DX: R93.421 Abnormal radiologic findings on diagnostic imaging of right kidney (principal); N20.0 Calculus of kidney; R82.4 Acetonuria; Z98.890 Other specified postprocedural states
CPT/HCPCS: 36415; 74018; 80051

== ENCOUNTER → 2018-08-06 | Outpatient (CLI) | payer MEDICARE, BC ==
--- NOTE | 2018-08-06 11:58 | XR ---
EXAMINATION TYPE: XR KUB DATE OF EXAM: 08/06/2018 11:33 AM CLINICAL HISTORY: Nephrolithiasis TECHNIQUE: Single supine KUB image of the abdomen is obtained. COMPARISON: 04/23/2018 FINDINGS: There are 2 punctate right renal calculi again seen over the lower pole the right kidney. T hese measure approximately 2 mm. No left-sided calculi are evident. Some are phleboliths are seen wit hin the pelvis. No new calcifications along the courses of the ureters. Cholecystectomy clips are see n. Moderate degenerative change of the lumbosacral junction and femoral acetabular joints are present . IMPRESSION: Unchanged 2 mm renal calculi (2 in number) projected over the lower pole right kidney in comparison the prior of 04/23/2018. No new calculi are seen along the courses of the ureters or within the pelvis.
== END | disposition home or self-care (01) ==
LOC: RADXRMAIN 11:18
PROVIDERS: ATTEND Urology
DX: N20.0 Calculus of kidney (principal)
CPT/HCPCS: 74018

== ENCOUNTER → 2018-09-11 | Outpatient (CLI) | payer MEDICARE, BC ==
--- NOTE | 2018-09-11 14:36 | XR ---
EXAMINATION TYPE: XR ankle complete RT DATE OF EXAM: 09/11/2018 CLINICAL HISTORY: Right ankle pain with lateral malleolar soft tissue swelling TECHNIQUE: Frontal, lateral and oblique images of the right ankle are obtained. COMPARISON: None. FINDINGS: There is no acute fracture/dislocation evident in the right ankle. The ankle mortise appe ars within normal limits. The overlying soft tissues demonstrate mild soft tissue swelling over the lateral malleolus. No radiopaque foreign body. Small plantar and Achilles heel spurs are present. IMPRESSION: Mild soft tissue swelling over the lateral malleolus with no acute fracture or dislocatio n in the right ankle.
== END | disposition home or self-care (01) ==
LOC: RADXRYALE 12:53
PROVIDERS: ATTEND Internal Medicine
DX: M79.89 Other specified soft tissue disorders (principal)

== ENCOUNTER → 2018-10-03 | Outpatient (CLI) | payer MEDICARE, BC ==
[2018-10-03 11:40] LABS: HCT 41.6 % (34.0-46.0); HGB 13.4 gm/dL (11.4-16.0); MCH 25.5 pg (25.0-35.0); MCHC 32.2 g/dL (31.0-37.0); MCV 79.3 fL (80.0-100.0); Mean Platelet Volume 7.2; Platelet Count 250 k/uL (150-450); RBC 5.25 m/uL (3.80-5.40); WBC 13.1 k/uL (3.8-10.6)
[2018-10-03 11:45] LABS: INR 0.9 (<1.2); Partial Thromboplastin Time 25.4 sec (22.0-30.0); Prothrombin Time 9.5 sec (9.0-12.0)
[2018-10-03 11:55] LABS: Albumin 4.3 g/dL (3.5-5.0); Calcium 9.7 mg/dL (8.4-10.2); Potassium 3.2 mmol/L (3.5-5.1); Total Protein 7.5 g/dL (6.3-8.2)
[2018-10-03 13:05] LABS: Appearance,Urine Clear (Clear); Bacteria,Urine Rare /hpf; Bilirubin,Urine Negative (Negative); Blood,Urine Negative (Negative); Color,Urine Light Yellow; Glucose,Urine (UA) Negative (Negative); Hyaline Casts,Urine 1 /lpf (0-2); Ketones,Urine Negative (Negative); Leukocyte Esterase,Urine Trace (Negative); Mucus,Urine Rare /hpf; Nitrite,Urine Negative (Negative); Protein,Urine Negative (Negative); RBC,Urine <1 /hpf (0-5); Specific Gravity,Urine 1.012 (1.001-1.035); Squamous Epithelial Cell,Urine 1 /hpf (0-4); Urobilinogen,Urine <2.0 mg/dL (<2.0); WBC,Urine 4 /hpf (0-5)
== END | disposition home or self-care (01) ==
LOC: LABPAT 10:53
PROVIDERS: ATTEND Orthopaedic Surgery
DX: Z01.812 Encounter for preprocedural laboratory examination (principal)
CPT/HCPCS: 80053; 81001; 85027; 85610; 85730; 87070

== ENCOUNTER 2018-10-21 11:00 | Inpatient (IN) | payer MEDICARE, BC ==
[~2018-10-21 11:00] MED LIST: ACETAMINOPHEN TAB 500 MG TAB PO ONE; LIDOCAINE 1% 20 ML VIAL (10MG/ML) FOR IV START INTRADERMA PRN; MELOXICAM 7.5 MG TAB PO ONE; MIDAZOLAM 2 MG/2 ML VIAL IV PRN; ROPIVACAINE 246.25 MG, EPINEPHrine 0.5 MG, KETOROLAC 30 MG, WATER FOR INJECTION,STERILE... MISCELLANE ONE; TRANEXAMIC ACID 1,000 MG in SODIUM CHLORIDE 0.9% 100 ML IVPB ONE; ceFAZolin IN SWFI 2 GM/20 ML SYRINGE IVP ONE; fentaNYL (PF) 50 MCG/ML 2 ML AMP IV PRN
[2018-10-21] MEDS ORDERED: fentaNYL (PF) 50 MCG/ML 2 ML AMP IV ONE ×2 (11:55→12:23)
[2018-10-21] MEDS ORDERED: MIDAZOLAM (PF) 2 MG/2 ML VIAL IV ONE ×2 (11:55→12:23)
[2018-10-21 12:10] LABS: Glucose,Whole Blood 96 mg/dL (75-99)
[2018-10-21] MEDS: LACTATED RINGERS 1,000 ML IV SCH ×2 (12:20→16:54)
[2018-10-21] MEDS ORDERED: ROPIVACAINE 1,100 MG, SODIUM CHLORIDE 0.9% 500 ML 330 ML MISCELLANE PRN ×2 (12:43)
--- NOTE | 2018-10-21 12:45 | P.ANPRN ---
Procedure Note - Anesthesia - Nerve Block Performed Right Adductor Canal Infusion Time Out Performed: Yes Date of Procedure: 10/21/18 Procedure Start Time: 12:34 Procedure Stop Time: 12:44 Location of Patient Procedure: PreOp Indication: Acute Post-Operative Pain, Analgesia, Dx/Pain Location, Requested by physician Sedation Type: Sedate with meaningful contact maintained Preparation: Sterile Prep, Sterile Dressing Position: Supine Catheter: Indwelling Needle Types: On-Q Needle Gauge: 20 Technique: Ultrasound Injectate: 0.5% Ropivacaine (see comment for volume) (20 ml total volume)
[2018-10-21] MEDS ORDERED: DEXAMETHASONE SOD PHOSPHATE 10 MG/ML 1 ML VIAL IV ONE (12:50)
[2018-10-21] MEDS ORDERED: ONDANSETRON 4 MG/2 ML VIAL IVP ONE (12:50)
[2018-10-21] MEDS ORDERED: ONDANSETRON 4 MG/2 ML VIAL IVP PRN (13:02)
[2018-10-21] MEDS ORDERED: DIAZEPAM 5 MG TAB PO PRN (13:02)
[2018-10-21] MEDS ORDERED: hydrOXYzine PAMOATE 25 MG CAP PO PRN (13:02)
[2018-10-21] MEDS ORDERED: NA PHOS,M-B/NA PHOS,DI-BA 133 ML ENEMA RECTAL PRN (13:02)
[2018-10-21] MEDS ORDERED: HYDROmorphone 0.5 MG/0.5 ML SYRINGE IVP PRN ×3 (13:02)
[2018-10-21] MEDS ORDERED: NALOXONE 0.4 MG/ML 1 ML VIAL IV PRN (13:02)
[2018-10-21] MEDS ORDERED: HYDROcodone/APAP 5-325MG 1 EACH TAB PO PRN ×2 (13:02)
[2018-10-21] MEDS ORDERED: BISACODYL 10 MG SUPP RECTAL PRN (13:02)
[2018-10-21] MEDS ORDERED: MAGNESIUM HYDROXIDE 2,400 MG/10 ML CUP PO PRN (13:02)
[2018-10-21] MEDS ORDERED: PROPOFOL 10 MG/ML 20 ML VIAL IV ONE (13:07)
[2018-10-21] MEDS ORDERED: fentaNYL (PF) 50 MCG/ML 2 ML AMP ONE (13:07)
[2018-10-21] MEDS ORDERED: MIDAZOLAM 2 MG/2 ML VIAL ONE (13:07)
[2018-10-21] MEDS ORDERED: TRANEXAMIC ACID 1,000 MG/10 ML VIAL ONE (13:07)
[2018-10-21] MEDS ORDERED: ceFAZolin 3,000 MG in SODIUM CHLORIDE 0.9% IRRIGATIO 3,000 ML IRRIGATION ONE (13:07)
[2018-10-21] MEDS ORDERED: SODIUM CHLORIDE 0.9% 100 ML BAG ONE (13:07)
[2018-10-21] MEDS ORDERED: LACTATED RINGERS 1,000 ML IV ONE (13:52)
--- NOTE | 2018-10-21 14:30 | P.OP ---
Date of Procedure: 10/21/18 Preoperative Diagnosis: Severe osteoarthritis right knee Postoperative Diagnosis: Severe osteoarthritis right knee Procedure(s) Performed: Right total knee arthroplasty Implants: Russo [employer] Nephew Journey II CR Oxinium cruciate retaining femoral component size 4, right [employer] Journey right nonporous tibial baseplate size 3 [employer] Journey II, XLPE CR articular insert, size 11 mm, Size 3-4 right [employer] Journey BCS resurfacing round patellar component, 29 mm All components were cemented using Pal[place]os R bone cement.. The articulation is Oxinium on polyethylene. Anesthesia: spinal Surgeon: Vince Truong Administrative Receptionist #1: Shayy Arizmendi Estimated Blood Loss (ml): 50 Pathology: other (Bone and cartilage) Condition: stable Disposition: PACU Indications for Procedure: After failure of conservative treatment we discussed the surgical and nonsurgical treatment options at length. Patient wishes to proceed with a total knee arthroplasty. Complications specific to this procedure were discussed at length, including but not limited to infection, bleeding, stiffness, and nerve injury. Patient is aware of all these complications and informed consent was obtained Operative Findings: The operative findings are consistent with severe osteoarthritis of the right knee Description of Procedure: Patient was seen in the preoperative area consent was reviewed and operative site was marked with a skin marker. An adductor canal pain catheter was placed by anesthesia in the preoperative area. Patient was then brought to the operating room and given preoperative antibiotics intravenously. A spinal anesthetic was administered by the anesthesia department. A tourniquet was placed on the upper thigh and the lower extremity was prepped and draped in usual sterile fashion. A gram of transexamic acid was given. A universal timeout was then performed which confirmed the patient's name, surgical site, ALLERGIES, and consent. The lower extremity was then exsanguinated and tourniquet was inflated to 250 mmHg. A standard and anterior midline approach to the knee was performed. The skin and subcutaneous tissue was dissected down to the patellar tendon. A medial parapatellar arthrotomy was then performed. The knee was then extended, the patellar was everted, and the knee was again flexed. Anterior horns of both menisci were excised, and a release was performed to the posterior medial aspect of the knee. On gross visual inspection, there was complete loss of articular cartilage in the medial and patellofemoral joint spaces. There was also significant cartilage damage in the lateral compartment. There were multiple periarticular osteophytes which were then removed with a Ronguer. The femoral canal was then opened with the appropriate drill, and the intramedullary femoral cutting guide was then placed and set for 5 of valgus. The distal femoral cutting block was then pinned in place, and the distal femur was then cut. The cutting block was then removed and the cut was checked for flatness. Next, the sizing guide was then placed and set for 3 external rotation based off of the epicondylar axis and Whitesides line. After the femur was sized, the appropriate 4-in-1 cutting block was then pinned in place. The anterior condyles were cut without notching. The posterior and chamfer cuts were performed while protecting the collateral ligaments. The cutting block was then removed, and the femoral canal was plugged with autologous bone. Attention was then directed to the tibia. The remaining ACL was removed with a Ronguer, and the tibia was then gently subluxed forward with a large bent knee retractor. Any remaining menisci was excised. The posterior lateral corner was cauterized in order to cauterize the lateral geniculate artery. The extra medullary tibial cutting guide was then placed, set for the appropriate rotation, slope, and depth of resection. The proximal tibia cutting guide was then pinned in place. Proximal tibia was then cut and sized. Next trials were then placed with the appropriate-sized insert. The knee was able to fully extend and flex to 130 and was stable throughout all range of motion. The knee was then extended, patella everted. Patella was then measured, and then using an osteotomy guide, the patella was cut at the appropriate level. The patella was then measured and drilled and the patella trial was then placed. The knee was then taken through range of motion with the patella trial and the patella tracked normally. The knee was then extended patella trial was then removed and the patella was everted. Knee was then flexed and lug holes were drilled through the femoral trial and the femoral trial was then removed. The tibial was then exposed, and the tibial broach guide was then pinned in place after it was set for the appropriate rotation to allow for the most coverage without overhang. The tibia was then reamed and broached. The cut surfaces of bone were then irrigated with pulsatile lavage. The posterior structures were injected with the ropivacaine solution. The knee was also irrigated with Irrisept solution. The components were then opened, the cement was mixed, and the components were then cemented in place. The cement was allowed to harden with the knee in full extension. While the cement was hardening, the remaining soft tissues were then injected with a ropivacaine solution, which consisted of 246.25 mg of ropivacaine, 0.5 mg of epinephrine, 30 mg of Toradol, 80 g of clonidine, and 48.45 mL of sterile water, for a total of 100 mL of fluid injected. After the cemented hardened. The tourniquet was released, and hemostasis was obtained. A second gram of transexamic acid was given. The knee was again irrigated. The knee was again taken through range of motion and found to be stable throughout all range of motion of 0-130, and the patella tracked normally. The fascia was then closed with #2 strata fix suture. The subcutaneous tissue was closed with 3-0 Vicryl and 3-0 strata fix. Dermabond glue was used for the skin and placed with the knee in flexion. The patient was placed in a sterile silver dressing. Patient was then transferred to recovery room in stable condition. The supply assistant ROSITA Drake was required due the complexity surgery and the need for a skilled certified surgical technician. She assisted in positioning, draping, retraction, and closure of the wound.
--- NOTE | 2018-10-21 15:20 | XR ---
EXAMINATION TYPE: XR knee limited RT DATE OF EXAM: 10/21/2018 CLINICAL HISTORY: Right knee pain and arthritis status post total knee replacement. TECHNIQUE: Portable AP and crosstable lateral views of the right knee are obtained immediately posto peratively. COMPARISON: None FINDINGS: Metallic hardware from total right knee arthroplasty is seen and appears satisfactory in a lignment and position. There is evidence of recent surgery with diffuse subcutaneous gas and soft ti ssue swelling noted. IMPRESSION: METALLIC HARDWARE FROM TOTAL RIGHT KNEE ARTHROPLASTY IS SATISFACTORY IN ALIGNMENT.
[2018-10-21 15:26] LABS: Glucose,Whole Blood 134 mg/dL (75-99)
[2018-10-21 16:37] VITALS: BMI 32.1
[2018-10-21] MEDS: SODIUM CHLORIDE 0.9% 1,000 ML IV SCH (16:55)
[2018-10-21 20:47] LABS: Glucose,Whole Blood 230 mg/dL (75-99)
[2018-10-21] MEDS ORDERED: SENNOSIDES-DOCUSATE SODIUM 1 EACH TAB PO SCH (21:00)
[2018-10-21] MEDS ORDERED: GABAPENTIN 100 MG CAP PO PRN (21:21)
[2018-10-21] MEDS: INSULIN ASPART (NovoLOG) 100 UNIT/ML VIAL SQ SCH (21:51)
[2018-10-21] MEDS: ceFAZolin IN SWFI 2 GM/20 ML SYRINGE IVP SCH (21:56)
[2018-10-21] MEDS: metFORMIN 500 MG TAB PO SCH (21:56)
[2018-10-21] MEDS ORDERED: ACETAMINOPHEN TAB 500 MG TAB PO PRN (22:45)
[2018-10-22] MEDS: CEPHALEXIN 500 MG CAP PO SCH ×2 (00:40→11:57)
[2018-10-22] MEDS: SODIUM CHLORIDE 0.9% 1,000 ML IV SCH (04:43)
[2018-10-22] MEDS: ceFAZolin IN SWFI 2 GM/20 ML SYRINGE IVP SCH (06:05)
[2018-10-22 07:26] LABS: Glucose,Whole Blood 135 mg/dL (75-99)
[2018-10-22] MEDS ORDERED: INSULIN ASPART (NovoLOG) 100 UNIT/ML VIAL SQ SCH (07:30)
[2018-10-22] MEDS ORDERED: PANTOPRAZOLE 40 MG TABLET PO SCH (07:30)
[2018-10-22] MEDS: metFORMIN 500 MG TAB PO SCH (07:50)
[2018-10-22] MEDS: INSULIN ASPART (NovoLOG) 100 UNIT/ML VIAL SQ SCH ×2 (07:52→11:56)
[2018-10-22 08:01] LABS: Basophils % (A) 0 %; Eosinophils % (A) 0 %; HCT 37.5 % (34.0-46.0); Lymphocytes # (A) 0.8 k/uL (1.0-4.8); Lymphocytes % (A) 5 %; MCH 25.2 pg (25.0-35.0); MCV 78.7 fL (80.0-100.0); Mean Platelet Volume 7.2; Monocytes # (A) 0.8 k/uL (0-1.0); Monocytes % (A) 6 %; Neutrophils # (A) 13.5 k/uL (1.3-7.7); Neutrophils % (A) 89 %; Platelet Count 274 k/uL (150-450); RBC 4.76 m/uL (3.80-5.40); WBC 15.2 k/uL (3.8-10.6)
--- NOTE | 2018-10-22 08:20 | CONS ---
CONSULTATION REASON FOR CONSULTATION: Advice regarding diabetes and other medical issues requested by Dr. Truong. HISTORY OF PRESENT ILLNESS: A 72-year-old woman with a past medical history of CVA, TIA, diabetes mellitus type 2, fibromyalgia, GERD, hypertension, history of DJD, sleep apnea, being followed by Dr. Worthington in the office setting, underwent a right total knee arthroplasty. There is no history of fever, chills, or rigors. No history of headache, loss of consciousness,chest pain, palpitations, hematochezia or melena at this time. However, the patient is complaining of some hallucinations for the last few days. Apparently the patient was started on Lipitor recently. There is no history of fever, rigors. No headaches, loss of consciousness or seizures. The patient also had significant cutaneous infections around the labia and also the gluteal region recently. PAST MEDICAL HISTORY: History of CVA, TIA, diabetes mellitus type 2, fibromyalgia, GERD, hyperlipidemia, hypertension, DJD, history of sleep apnea. MEDICATIONS:: Prior to home medications are as mentioned earlier. SOCIAL HISTORY: The patient followed Dr. Worthington in the outpatient setting. HOME MEDICATIONS: 1. Glucophage 500 mg p.o. a.c. breakfast. 2. Dyazide 37.5 mg/20 mg p.o. daily. 3. Prilosec 20 mg with breakfast. 5. Magnesium oxide 500 mg p.o. daily. 6. Cozaar 50 mg p.o. daily. 7. Neurontin 200 mg p.o. b.i.d. p.r.n. 8. Prozac 40 mg p.o. daily. 9. Diltiazem 30 mg p.o. daily. 10.Plavix 10 mg. 11.Cipro 500 mg p.o. b.i.d. 12.Keflex 500 mg q.6 p.r.n. 13.Lipitor 10 mg p.o. daily. ALLERGIES: CLINDAMYCIN, CODEINE, DILAUDID, IODINATED CONTRAST, MORPHINE. FAMILY HISTORY: History of coronary artery disease, CABG. SOCIAL HISTORY: No history of smoking, no history of alcohol. REVIEW OF SYSTEMS: ENT: No diminished hearing or vision. CARDIOVASCULAR: No angina. LUNGS: No cough. GI: No nausea. : No dysuria. NERVOUS SYSTEM: As mentioned earlier. ALLERGY/IMMUNOLOGY: No asthma or hayfever. MUSCULOSKELETAL: As mentioned earlier. HEMATOLOGY: Negative. RHEUMATOLOGY: Negative. PSYCHIATRY: As mentioned earlier. DERMATOLOGY: Negative. RHEUMATOLOGY: Negative. PSYCHIATRY: As mentioned earlier. PHYSICAL EXAM: Patient is alert and oriented x3. The pulse is 89, blood pressure 100/52, respiration 16, temperature 98.5, pulse ox 94% on room air. GENERAL: Oral mucosa moist. NECK: No jugular venous distention. No lymph node enlargement. CARDIOVASCULAR S1-S2, no S3, no S4. RESPIRATORY: Breath sounds diminished at the bases, no rhonchi, no crackles. ABDOMEN: Soft, nontender. No mass. LEGS: Status post right knee arthroplasty. NERVOUS SYSTEM: Higher functions as mentioned earlier, moves all 4 limbs. No focal motor or sensory deficits. LYMPHATICS: No lymph node enlargement in the neck or axillae. JOINTS: No active deforming arthropathy. LABS: Accu-Cheks 96, 134, 230. Otherwise, the previous labs done preop include creatinine 1.22, potassium 3.2. Triglycerides is 199. ASSESSMENT: 1. Status post right total knee arthroplasty. 2. Recent hallucinations, possibly medication induced. 3. Increased creatinine with possibly chronic kidney disease stage III. 4. History of labial abscess and gluteal abscess, previously. 5. Diabetes mellitus type 2. 6. Fibromyalgia, gastroesophageal reflux disease. 7. Hypertension. 8. History of cerebrovascular accident. 9. History of sleep apnea. 10.History of nephrolithiasis. 11.History of Clostridium difficile colitis. 12.History of breast surgery. 13.History of cholecystectomy. 14.History of depression. 15.FULL CODE. RECOMMENDATION: In this 72-year-old woman who present after knee surgery had multiple medical issues as mentioned earlier. Currently, the patient's sensorium is normal. Patient reports no hallucination but I would caution to use caution before using narcotics and to use narcotics only if new the pain is not relieved by Tylenol. Otherwise, I would also recommend repeat labs in the morning, especially comparing the serum creatinine and recommend close follow up with Dr. Worthington in the outpatient setting. As mentioned earlier, patient reports some recent changes in the medications which had to be reviewed in the outpatient setting as a part of further evaluation into the recent onset of hallucinations. Otherwise, I would also recommend to continue the antibiotics, DVT prophylaxis, incentive spirometry. Will follow the patient closely with you and thank you, Dr. Prado for letting us participate in this patient. Antiplatelet agents may be initiated when it is okay with Orthopedic Surgery. MMJEL / IJN: [id number] / [id number]
[2018-10-22 08:31] LABS: Calcium 9.2 mg/dL (8.4-10.2); Potassium 3.4 mmol/L (3.5-5.1)
[2018-10-22] MEDS ORDERED: DILTIAZEM ORAL 30 MG TAB PO SCH (09:00)
[2018-10-22] MEDS ORDERED: LOSARTAN 50 MG TAB PO SCH (09:00)
[2018-10-22] MEDS ORDERED: MELOXICAM 7.5 MG TAB PO SCH (09:00)
[2018-10-22] MEDS ORDERED: FLUoxetine HCL 20 MG CAP PO SCH (09:00)
[2018-10-22] MEDS ORDERED: TRIAMTERENE-HCTZ 37.5-25MG 1 EACH CAP PO SCH (09:00)
[2018-10-22] MEDS ORDERED: ATORVASTATIN 20 MG TAB PO SCH (09:00)
[2018-10-22] MEDS ORDERED: MAGNESIUM OXIDE 400 MG TAB PO SCH (09:00)
[2018-10-22] MEDS ORDERED: CIPROFLOXACIN HCL 500 MG TAB PO SCH (09:00)
--- NOTE | 2018-10-22 09:06 | P.DS ---
Providers Date of admission: 10/21/18 11:00 Expected date of discharge: 10/22/18 Attending physician: Vince Truong Consults: 10/21/18 13:02 Consult Physician Routine Consulting Provider: Anna Farr Consult Reason/Comments: medical management and anticoagulation Do you want consulting provider notified?: Yes Primary care physician: Letitia Worthington - Discharge Diagnosis(es) (1) Osteoarthritis of right knee Current Visit: Yes Status: Acute (2) S/P total knee arthroplasty Current Visit: Yes Status: Acute Hospital Course: This is a 72-year-old female with known history of degenerative arthritis of the right knee. The patient presents for evaluation. After discussion and consideration patient elects to proceed with total knee arthroplasty. The patient is seen preoperatively by Dr. Truong and medically cleared for surgery by their primary care physician. Patient is admitted to [facility] on 10/21/2018 for total knee arthroplasty. The procedures performed without complication or sequelae. The patient is doing well postoperatively. Labs and vital signs are stable on day of discharge. On day of discharge patient's knee incision is healing well. There is minimal erythema. There is no drainage noted at this time. There is minimal soft tissue swelling to the knee. Patient has full foot and ankle motion without difficulty or pain. Calf is soft and nontender to palpation. Neurovascular status to the right lower extremity is intact. Patient is discharged home in good condition. Opioid start talking form is reviewed and signed at patient bedside. Please see med rec for accurate list of home medications. Plan - Discharge Summary Discharge Rx Participant: Yes New Discharge Prescriptions: New HYDROcodone/APAP 5-325MG [[place] 5-325] 1 - 2 tab PO Q6HR PRN #56 tab PRN Reason: Pain Sennosides [Senokot] 1 tab PO BID #60 tablet No Action Clopidogrel [Plavix] 75 mg PO DAILY Omeprazole [PriLOSEC] 20 mg PO AC-BRKFST Gabapentin [Neurontin] 100 mg PO BID PRN PRN Reason: NERVE PAIN FLUoxetine HCL [PROzac] 40 mg PO DAILY Triamterene-Hctz 37.5-25Mg [Dyazide 37.5-25 Capsule] 1 cap PO DAILY Diltiazem HCl 30 mg PO DAILY Ciprofloxacin HCl [Cipro] 500 mg PO BID Cephalexin [Keflex] 500 mg PO Q6HR metFORMIN HCL [Glucophage] 500 mg PO AC-BRKFST Atorvastatin [Lipitor] 20 mg PO DAILY Losartan [Cozaar] 50 mg PO DAILY Magnesium Oxide [Ponce] 500 mg PO DAILY Naproxen Sodium [Aleve] 220 mg PO BID PRN PRN Reason: Pain Discharge Medication List Clopidogrel [Plavix] 75 mg PO DAILY 06/22/17 [History] FLUoxetine HCL [PROzac] 40 mg PO DAILY 06/22/17 [History] Gabapentin [Neurontin] 100 mg PO BID PRN 06/22/17 [History] Omeprazole [PriLOSEC] 20 mg PO AC-BRKFST 06/22/17 [History] Diltiazem HCl 30 mg PO DAILY 10/19/17 [History] Triamterene-Hctz 37.5-25Mg [Dyazide 37.5-25 Capsule] 1 cap PO DAILY 10/19/17 [History] Atorvastatin [Lipitor] 20 mg PO DAILY 10/09/18 [History] Cephalexin [Keflex] 500 mg PO Q6HR 10/09/18 [History] Ciprofloxacin HCl [Cipro] 500 mg PO BID 10/09/18 [History] Losartan [Cozaar] 50 mg PO DAILY 10/09/18 [History] Magnesium Oxide [Ponce] 500 mg PO DAILY 10/09/18 [History] Naproxen Sodium [Aleve] 220 mg PO BID PRN 10/09/18 [History] metFORMIN HCL [Glucophage] 500 mg PO AC-KFST 10/09/18 [History] HYDROcodone/APAP 5-325MG [[place] 5-325] 1 - 2 tab PO Q6HR PRN #56 tab 10/22/18 [Rx] Sennosides [Senokot] 1 tab PO BID #60 tablet 10/22/18 [Rx] Follow up Appointment(s)/Referral(s): Letitia Worthington MD [Primary Care Provider] - 1 Week Vince Truong DO [Doctor of Osteopathic Medicine] - 11/04/18 8:30 am Activity/Diet/Wound Care/Special Instructions: Weightbearing as tolerated with a walker. CPM 5-6h daily. Leave dressing intact. May be removed by home care nurse or by patient in 10 days. May shower with dressing on. Please follow up with [facility] and call with any questions or concerns, . Discharge Disposition: HOME WITH HOME HEALTH SERVICES
[2018-10-22 09:14] VITALS: BP 163/92; PULSE 101; RESP 12; TEMP 97.5
[2018-10-22] MEDS ORDERED: CLOPIDOGREL 75 MG TAB PO SCH (11:00)
[2018-10-22] MEDS ORDERED: ASPIRIN 325 MG TAB PO SCH (11:15)
[2018-10-22] MEDS: LACTATED RINGERS 1,000 ML IV SCH (11:19)
[2018-10-22 11:47] LABS: Glucose,Whole Blood 107 mg/dL (75-99)
--- NOTE | 2018-10-22 12:57 | CDI ---
Documentation Clarification Form Date: 10/22/2018 12:41:49 PM From: Delilah Fritz RN CCDS Admit Date: 10/21/2018 11:00:00 AM Patient Name: Megan Briceño Visit Number: [id number] Discharge Date: ATTENTION: The Clinical Documentation Specialists (CDI) and [facility] Coding Staff appreciate your assistance in clarifying documentation. Please respond to the clarification below the line at the bottom and electronically sign. The CDI & [facility] Coding staff will review the response and follow-up if needed. Please note: Queries are made part of the Legal Health Record. If you have any questions, please contact the author of this message via ITS. Dr. Anna Farr Recent hallucinations, possibly medication induced was documented in your consult. History/Risk Factors: 72 year old female presents to [facility] for elective Knee Arthroplasty. Clinical Indicators: The patient recently started on Lipitor. Labs: Cr 1.50; Treatment: per your consult Pateint reports no hallucination but I would caution to use caution before using narcotics and to use narcotics only if new pain is not relieved by Tylenol. In your professional opinion, please clarify the etiology of the Hallucinations, if known. * Metabolic Encephalopathy (Underlying Medical Illness) * Other condition (please specify) * Unable to determine (Last Revision: August 2017) Acute delirium MTDD
--- NOTE | 2018-10-22 15:17 | PN ---
PROGRESS NOTE DATE OF SERVICE: 10/22/2018 This is a 72-year-old woman who was admitted after right total knee arthroplasty is being closely monitored. No chest pain. No palpitations. No fever. No shortness of breath, and no cough. PHYSICAL EXAM: Alert and oriented X3, pulse 101, blood pressure 160/90, respiration 12, temperature 97.4, pulse ox 98% on room air. HEENT: Conjunctivae normal. NECK: No JVD. CARDIOVASCULAR SYSTEM: S1, S2, muffled. RESPIRATORY: Breath sounds diminished at the bases, no rhonchi, no crackles. ABDOMEN: Soft, nontender. LEGS: Status post knee arthroplasty. NERVOUS SYSTEM: No focal deficits. LABS: WBC 15.2, sodium 138, potassium 3.4, and creatinine is 1.5. Glucose 135. ASSESSMENT: 1. Status post right total knee arthroplasty. 2. Recent hallucinations, possibly medication-induced delirium. 3. Increased creatinine with possible chronic kidney disease stage III. 4. History of labial abscess and gluteal abscess previously. 5. Diabetes mellitus type 2. 6. Fibromyalgia. 7. Gastroesophageal reflux disease. 8. Hypertension. 9. History of cerebrovascular accident. 10.History of sleep apnea. 11.History of nephrolithiasis. 12.History of Clostridium difficile colitis. 13.History of breast surgery. 14.History of cholecystectomy. 15.History of depression. 16.FULL CODE. RECOMMENDATION: Recommend to continue with the current medication, continue with the symptomatic treatment. Otherwise, at this time I recommend to hold Dyazide and monitor blood pressure closely and adjust blood pressure medications. No outpatient setting with Dr. Worthington. Orthopedics has recommended full-dose aspirin as the DVT prophylaxis which will be continued per Ortho recommendations. Otherwise, will continue to monitor. Further recommendation to follow. Follow up labs with Dr. Worthington. MMODL / IJN: [id number] /
== END 2018-10-22 13:06 | disposition home health service (06) | DRG 470 ==
LOC: 2ORMAIN 11:00 → 4SSUR 16:01
PROVIDERS: ADMIT Orthopaedic Surgery; ATTEND Orthopaedic Surgery
PROC: 0SRC069 Replacement of Right Knee Joint with Oxidized Zirconium on Polyethylene Synthetic Substitute, Cemented, Open Approach (ICD-10-PCS; principal; 2018-10-21 13:05)
DX: M17.11 Unilateral primary osteoarthritis, right knee (principal); F05 Delirium due to known physiological condition; E11.22 Type 2 diabetes mellitus with diabetic chronic kidney disease; I12.9 Hypertensive chronic kidney disease with stage 1 through stage 4 chronic kidney disease, or unspecified chronic kidney disease; N18.3 Chronic kidney disease, stage 3 (moderate); E78.5 Hyperlipidemia, unspecified; F32.9 Major depressive disorder, single episode, unspecified; M79.7 Fibromyalgia; K21.9 Gastro-esophageal reflux disease without esophagitis; M21.41 Flat foot [pes planus] (acquired), right foot; M19.071 Primary osteoarthritis, right ankle and foot; G47.30 Sleep apnea, unspecified; Z79.2 Long term (current) use of antibiotics; Z79.84 Long term (current) use of oral hypoglycemic drugs; Z79.02 Long term (current) use of antithrombotics/antiplatelets; Z79.899 Other long term (current) drug therapy; Z86.19 Personal history of other infectious and parasitic diseases; Z87.442 Personal history of urinary calculi; Z90.49 Acquired absence of other specified parts of digestive tract; Z90.710 Acquired absence of both cervix and uterus; Z86.73 Personal history of transient ischemic attack (TIA), and cerebral infarction without residual deficits; Z88.5 Allergy status to narcotic agent; Z88.8 Allergy status to other drugs, medicaments and biological substances; Z88.1 Allergy status to other antibiotic agents; Z91.041 Radiographic dye allergy status; Z82.49 Family history of ischemic heart disease and other diseases of the circulatory system
CPT/HCPCS: 80048; 85025; 88300

== ENCOUNTER → 2019-06-18 | Outpatient (CLI) | payer MEDICARE ==
--- NOTE | 2019-06-19 10:27 | MM ---
Reason for exam: screening (asymptomatic). Last mammogram was performed 1 year and 8 months ago. History: Patient is postmenopausal. Family history of breast cancer in maternal aunt at age 60, breast cancer in maternal cousin at age 60, and breast cancer in mother at age 60. Benign excisional biopsy of the right breast, March 2009. Took estrogen for 7 years beginning at age 50. Physical Findings: A clinical breast exam by your physician is recommended on an annual basis and results should be correlated with mammographic findings. MG 3D Screening Mammo W/Cad Bilateral CC and MLO view(s) were taken. Prior study comparison: October 01, 2017, bilateral MG 3d screening mammo w/cad. June 21, 2016, bilateral MG 3d screening mammo w/cad. There are scattered fibroglandular densities. Benign appearing bilateral calcifications. No suspicious abnormality. Right biopsy marker noted. No significant changes when compared with prior studies. ASSESSMENT: Benign, BI-RAD 2 RECOMMENDATION: Routine screening mammogram of both breasts in 1 year.
== END | disposition home or self-care (01) ==
LOC: RADMAMWWP 08:25
PROVIDERS: ATTEND Internal Medicine
DX: Z12.31 Encounter for screening mammogram for malignant neoplasm of breast (principal)
CPT/HCPCS: 77063; 77067

== ENCOUNTER → 2019-12-03 | Outpatient (CLI) | payer MEDICARE ==
[2019-12-03 08:30] VITALS: BP 158/90; PULSE 73; RESP 16
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
== END | disposition home or self-care (01) ==
LOC: PNWHC3 08:14
PROVIDERS: ATTEND Specialist
DX: M51.16 Intervertebral disc disorders with radiculopathy, lumbar region (principal); M47.26 Other spondylosis with radiculopathy, lumbar region; M48.061 Spinal stenosis, lumbar region without neurogenic claudication; M46.96 Unspecified inflammatory spondylopathy, lumbar region; E78.5 Hyperlipidemia, unspecified; K21.9 Gastro-esophageal reflux disease without esophagitis; E11.9 Type 2 diabetes mellitus without complications; M79.7 Fibromyalgia; G47.33 Obstructive sleep apnea (adult) (pediatric); Z99.89 Dependence on other enabling machines and devices; Z79.891 Long term (current) use of opiate analgesic; Z79.899 Other long term (current) drug therapy; Z88.1 Allergy status to other antibiotic agents; Z88.5 Allergy status to narcotic agent; Z88.8 Allergy status to other drugs, medicaments and biological substances; Z79.82 Long term (current) use of aspirin; Z79.84 Long term (current) use of oral hypoglycemic drugs; Z90.49 Acquired absence of other specified parts of digestive tract; Z90.710 Acquired absence of both cervix and uterus
CPT/HCPCS: G0463 ×2; 99201; 99211

== ENCOUNTER 2019-12-30 05:58 | Day surgery (SDC) | payer MEDICARE ==
[2019-12-24 13:36] VITALS: BMI 33.6
[~2019-12-30 05:58] MED LIST changes: -ACETAMINOPHEN TAB 500 MG TAB PO ONE; +LACTATED RINGERS 1,000 ML IV SCH; -LIDOCAINE 1% 20 ML VIAL (10MG/ML) FOR IV START INTRADERMA PRN; -MELOXICAM 7.5 MG TAB PO ONE; -MIDAZOLAM 2 MG/2 ML VIAL IV PRN; -ROPIVACAINE 246.25 MG, EPINEPHrine 0.5 MG, KETOROLAC 30 MG, WATER FOR INJECTION,STERILE... MISCELLANE ONE; -TRANEXAMIC ACID 1,000 MG in SODIUM CHLORIDE 0.9% 100 ML IVPB ONE; -ceFAZolin IN SWFI 2 GM/20 ML SYRINGE IVP ONE; -fentaNYL (PF) 50 MCG/ML 2 ML AMP IV PRN
[2019-12-30 06:19] VITALS: TEMP 97.6
[2019-12-30 06:30] LABS: Glucose,Whole Blood 126 mg/dL (75-99)
[2019-12-30] MEDS ORDERED: fentaNYL (PF) 50 MCG/ML 2 ML AMP ONE (06:52)
[2019-12-30] MEDS ORDERED: IOPAMIDOL M200 10 ML VIAL ONE (06:52)
[2019-12-30] MEDS ORDERED: methylPREDNISolone ACETATE 40 MG/ML 1 ML VIAL ONE (06:52)
[2019-12-30] MEDS ORDERED: MIDAZOLAM 2 MG/2 ML VIAL ONE (06:52)
[2019-12-30] MEDS ORDERED: IV FLUID CONTINUATION 1,000 ML IV ONE (07:10)
--- NOTE | 2019-12-30 07:10 | P.PCN ---
Date of Procedure: 12/30/19 Procedure(s) Performed: PREOPERATIVE DIAGNOSIS: 1- Lumbar Degenerative Disc Diseases 2-Lumbar spondylosis with Facet arthropathy without myelopathy. 3-lumbar spinal stenosis POSTOPERATIVE DIAGNOSIS: 1-Lumber Degenerative Disc Diseases 2-Lumbar spondylosis with Facet arthropathy without myelopathy. 3-lumbar spinal stenosis. PROCEDURE 1. Lumbar epidural steroid injection under fluoroscopic guidance at the L5-S1 level. (Fluoroscopy imaging was available in radiology department) 2. Lumbar epidurogram. ANESTHESIA: Local with 1% lidocaine 3 ml and , moderate sedation with intravenous Versed 1 mg ,and fentanyle 50 Mcg EBL: Minimal PROCEDURE INDICATION: The patient with low back pain and radiculitis symptoms unresponsive to conservative treatment. Fluoroscopy was used to optimize visualization of the needle placement and to maximize safety. PROCEDURE DESCRIPTION / TECHNIQUE: The patient was seen and identified in the preoperative area. Risks, benefits, complications including but not limited to infections ,bleeding ,allergic reaction to the medications ,nerve damage and not complete pain releife , and alternatives were discussed with the patient. The patient agreed to proceed with the procedure and signed the consent. IV was started, and vital signs were stable. Patient was taken to the OR and time out was completed. The patient was placed in the prone position on procedure table and a pillow was placed under the abdomen to reduce lumbar lordosis. The lumbosacral area was prepped and draped in the usual sterile fashion.ere closely monitored during the procedure. Conscious sedation was used during the procedure to decrease patients anxiety. Vital signs was monitered during the entire procedure. Using anterior-posterior fluoroscopy, the L5-S1 interlaminar space was identified and the skin over this site was marked and then infiltrated with 1% lidocaine subcutaneously. Subsequently, a 20-gauge Tuohy epidural needle was inserted and advanced toward the epidural space using the ``Loss of resistance technique and guided by AP and lateral fluoroscopy. The correct needle position in the epidural space was verified with the injection of 2 mL of the water soluble contrast dye Isovue 200 contrast and observing an excellent epidurogram with the epidural spread of the dye, after negative aspiration for blood and CSF and in the absence of paresthesias. Again after negative aspiration, a 6 ml mixture containing 40 mg of Depo-medrol , and 2 ml of preservative free Normal Saline, and 2 ml of preservative free lidocaine 1% solution was injected and a washout of epidurogram was seen. Needle was withdrawn intact, skin was cleansed, and bandages were applied. COMPLICATIONS: None DISPOSITION / PLANS: The patient was placed in a supine position and transferred to the recovery area in a stable condition for observation. There was no evidence of lower extremity motor or sensory deficit after the procedure. Patient was discharged from the recovery room after meeting discharge criteria. Home discharge instructions were given to the patient by the staff. The patient was reexamined prior to discharge. The patient will schedule a follow up in the clinic in 2-4 weeks. note= the last dose of Plavix was done one week ago, patient will resume Plavix tonight.
[2019-12-30 07:14] VITALS: RESP 16
--- NOTE | 2019-12-30 07:16 | FL ---
EXAMINATION TYPE: FL guided pain mgmt statistic DATE OF EXAM: 12/30/2019 HISTORY: Fluoroscopy time 7 seconds of fluoroscopy provided. IMPRESSION: 1. Fluoroscopy time.
[2019-12-30 07:30] VITALS: BP 139/70; PULSE 74
== END 2019-12-30 07:40 ==
LOC: ORPAIN 05:58
PROVIDERS: ATTEND Specialist
DX: G89.29 Other chronic pain (principal); M51.16 Intervertebral disc disorders with radiculopathy, lumbar region; M47.26 Other spondylosis with radiculopathy, lumbar region; M48.061 Spinal stenosis, lumbar region without neurogenic claudication; I10 Essential (primary) hypertension; E11.9 Type 2 diabetes mellitus without complications; M79.7 Fibromyalgia; K21.9 Gastro-esophageal reflux disease without esophagitis; E78.5 Hyperlipidemia, unspecified; G47.30 Sleep apnea, unspecified; Z79.82 Long term (current) use of aspirin; Z79.02 Long term (current) use of antithrombotics/antiplatelets; Z79.84 Long term (current) use of oral hypoglycemic drugs; Z79.899 Other long term (current) drug therapy; Z88.1 Allergy status to other antibiotic agents; Z88.5 Allergy status to narcotic agent; Z91.041 Radiographic dye allergy status; Z87.442 Personal history of urinary calculi; Z86.73 Personal history of transient ischemic attack (TIA), and cerebral infarction without residual deficits; Z85.828 Personal history of other malignant neoplasm of skin; Z86.14 Personal history of Methicillin resistant Staphylococcus aureus infection; Z90.49 Acquired absence of other specified parts of digestive tract; Z90.710 Acquired absence of both cervix and uterus; Z98.890 Other specified postprocedural states; Z80.3 Family history of malignant neoplasm of breast; Z80.6 Family history of leukemia; Z82.49 Family history of ischemic heart disease and other diseases of the circulatory system; Z83.3 Family history of diabetes mellitus
CPT/HCPCS: 62323; J2250; J1030; J3010; Q9966

== ENCOUNTER → 2020-01-15 | Day surgery (SDC) | payer MEDICARE ==
[2020-01-12 15:42] VITALS: BMI 32.8
[~2020-01-15] MED LIST changes: +IV FLUID CONTINUATION 750 ML IV ONE; +LIDOCAINE 1% (10MG/ML) FOR IV START INTRADERMA ONE; +MIDAZOLAM 2 MG/2 ML VIAL ONE; +fentaNYL (PF) 50 MCG/ML 2 ML AMP ONE; +methylPREDNISolone ACETATE 40 MG/ML 1 ML VIAL ONE
[2020-01-15 11:10] VITALS: TEMP 98.3
[2020-01-15 11:17] LABS: Glucose,Whole Blood 114 mg/dL (75-99)
--- NOTE | 2020-01-15 12:01 | P.PCN ---
Date of Procedure: 01/15/20 Procedure(s) Performed: Procedure(s) Performed: PREOPERATIVE DIAGNOSIS: 1- Lumbar Degenerative Disc Diseases 2-Lumbar spondylosis with Facet arthropathy without myelopathy. 3-lumbar spinal stenosis POSTOPERATIVE DIAGNOSIS: 1-Lumber Degenerative Disc Diseases 2-Lumbar spondylosis with Facet arthropathy without myelopathy. 3-lumbar spinal stenosis. PROCEDURE 1. Lumbar epidural steroid injection under fluoroscopic guidance at the L5-S1 level. (Fluoroscopy imaging was available in radiology department) ANESTHESIA: Local with 1% lidocaine 3 ml and , moderate sedation with intravenous Versed 2 mg ,and fentanyle 50 Mcg EBL: Minimal PROCEDURE INDICATION: The patient with low back pain and radiculitis symptoms unresponsive to conservative treatment. Fluoroscopy was used to optimize visualization of the needle placement and to maximize safety. PROCEDURE DESCRIPTION / TECHNIQUE: The patient was seen and identified in the preoperative area. Risks, benefits, complications including but not limited to infections ,bleeding ,allergic reaction to the medications ,nerve damage and not complete pain releife , and alternatives were discussed with the patient. The patient agreed to proceed with the procedure and signed the consent. IV was started, and vital signs were stable. Patient was taken to the OR and time out was completed. The patient was placed in the prone position on procedure table and a pillow was placed under the abdomen to reduce lumbar lordosis. The lumbosacral area was prepped and draped in the usual sterile fashion.ere closely monitored during the procedure. Conscious sedation was used during the procedure to decrease patients anxiety. Vital signs was monitered during the entire procedure. Using anterior-posterior fluoroscopy, the L5-S1 interlaminar space was identified and the skin over this site was marked and then infiltrated with 1% lidocaine subcutaneously. Subsequently, a 20-gauge Tuohy epidural needle was inserted and advanced toward the epidural space using the ``Loss of resistance technique and guided by AP and lateral fluoroscopy, after negative aspiration for blood and CSF and in the absence of paresthesias. Again after negative aspiration, a 5 ml mixture containing 40 mg of Depo-medrol , and 2 ml of preservative free Normal Saline, and 2 ml of preservative free lidocaine. Needle was withdrawn intact, skin was cleansed, and bandages were applied. COMPLICATIONS: None DISPOSITION / PLANS: The patient was placed in a supine position and transferred to the recovery area in a stable condition for observation. There was no evidence of lower extremity motor or sensory deficit after the procedure. Patient was discharged from the recovery room after meeting discharge criteria. Home discharge instructions were given to the patient by the staff. The patient was reexamined prior to discharge. The patient will schedule a follow up in the clinic in 2-4 weeks. note= the last dose of Plavix was done one week ago, patient will resume Plavix tonight. isoview was not used because patient has an ALLERGY to IVP dye
[2020-01-15 12:21] VITALS: BP 146/81; PULSE 70; RESP 16
--- NOTE | 2020-01-15 13:07 | FL ---
EXAMINATION TYPE: FL guided pain mgmt statistic DATE OF EXAM: 01/15/2020 CLINICAL HISTORY: Low back pain. TECHNIQUE: Fluoroscopy. COMPARISON: None. FINDINGS: Fluoroscopic guidance was provided during pain relief procedure performed by Dr. Chen . A total of 1 seconds of fluoroscopic time was utilized during the procedure and single spot images are acquired. Single image acquired shows needle localization near the level of lumbosacral junctio n. IMPRESSION: As Above.
== END ==
LOC: ORPAIN 10:51
PROVIDERS: ATTEND Specialist
DX: M47.26 Other spondylosis with radiculopathy, lumbar region (principal); M51.16 Intervertebral disc disorders with radiculopathy, lumbar region; M48.061 Spinal stenosis, lumbar region without neurogenic claudication; I25.10 Atherosclerotic heart disease of native coronary artery without angina pectoris; E11.9 Type 2 diabetes mellitus without complications; Z79.02 Long term (current) use of antithrombotics/antiplatelets; Z88.5 Allergy status to narcotic agent; Z88.1 Allergy status to other antibiotic agents; Z91.041 Radiographic dye allergy status
CPT/HCPCS: 62323; J2250; J1030; J3010

== ENCOUNTER → 2020-02-05 | Outpatient (CLI) | payer MEDICARE | END | disposition home or self-care (01) | LOC: LABWHC1 10:41 | PROVIDERS: ATTEND Internal Medicine | DX: R05 Cough (principal) | CPT/HCPCS: U0003; C9803 ==

== ENCOUNTER → 2020-11-16 | Outpatient (CLI) | payer MEDICARE, OTHER ==
--- NOTE | 2020-11-19 13:02 | MM ---
Reason for exam: screening (asymptomatic). Last mammogram was performed 1 year and 5 months ago. History: Patient is postmenopausal. Family history of breast cancer in maternal aunt at age 60, breast cancer in maternal cousin at age 60, and breast cancer in mother at age 60. Benign excisional biopsy of the right breast, March 2009. Took estrogen for 7 years beginning at age 50. Physical Findings: A clinical breast exam by your physician is recommended on an annual basis and results should be correlated with mammographic findings. MG 3D Screening Mammo W/Cad Bilateral CC and MLO view(s) were taken. Prior study comparison: June 18, 2019, bilateral MG 3d screening mammo w/cad. October 01, 2017, bilateral MG 3d screening mammo w/cad. There are scattered fibroglandular densities. Previous mammotome biopsy in the right breast. No significant changes when compared with prior studies. ASSESSMENT: Benign, BI-RAD 2 RECOMMENDATION: Routine screening mammogram of both breasts in 1 year.
== END | disposition home or self-care (01) ==
LOC: RADMAMWWP 06:57
PROVIDERS: ATTEND Internal Medicine
DX: Z12.31 Encounter for screening mammogram for malignant neoplasm of breast (principal)
CPT/HCPCS: 77063; 77067

== ENCOUNTER → 2021-03-07 | Outpatient (CLI) | payer MEDICARE, OTHER ==
[2021-03-07 10:44] LABS: Appearance,Urine Clear (Clear); Bilirubin,Urine Negative (Negative); Blood,Urine Small (Negative); Color,Urine Yellow; Glucose,Urine (UA) Negative (Negative); Ketones,Urine Negative (Negative); Leukocyte Esterase,Urine Moderate (Negative); Mucus,Urine Rare /hpf; Nitrite,Urine Negative (Negative); PH, Urine 5.5 (5.0-8.0); Protein,Urine Negative (Negative); RBC,Urine 1 /hpf (0-5); Specific Gravity,Urine 1.022 (1.001-1.035); Squamous Epithelial Cell,Urine 1 /hpf (0-4); Urobilinogen,Urine <2.0 mg/dL (<2.0); WBC,Urine 5 /hpf (0-5)
[2021-03-07 11:45] LABS: Creatinine,Urine Random 204.4 mg/dL
[2021-03-07 15:40] LABS: Basophils # (A) 0.04 X 10*3/uL (0.00-0.10); Basophils % (A) 0.6 %; Eosinophils # (A) 0.26 X 10*3/uL (0.04-0.35); Eosinophils % (A) 4.1 %; HCT 39.9 % (37.2-46.3); HGB 12.4 g/dL (12.0-15.0); Lymphocytes # (A) 1.28 X 10*3/uL (0.90-5.00); Lymphocytes % (A) 20.3 %; MCH 25.4 pg (27.0-32.0); MCHC 31.1 g/dL (32.0-37.0); MCV 81.6 fL (80.0-97.0); Mean Platelet Volume 10.4 fL (9.5-12.2); Monocytes % (A) 6.3 %; Neutrophils # (A) 4.31 X 10*3/uL (1.80-7.70); Neutrophils % (A) 68.4 %; Platelet Count 260 X 10*3/uL (140-440); RBC 4.89 X 10*6/uL (4.10-5.20); RDW 14.5 % (11.5-14.5); WBC 6.31 X 10*3/uL (4.50-10.00)
[2021-03-07 17:49] LABS: Protein, Total 7.1 g/dL (6.2-8.2)
[2021-03-08 00:07] LABS: % Iron Saturation 9.1 (12.00-45.00); African American GFR (CKD) 55.8 (60.0-200.0); Albumin 4.2 g/dL (3.8-4.9); Anion Gap 19.5 mmol/L (4.00-12.00); BUN/Creat Ratio 16.9 Ratio (12.00-20.00); Blood Urea Nitrogen 19.1 mg/dL (9.0-27.0); Calcium 9.5 mg/dL (8.7-10.3); Carbon Dioxide 22.8 mmol/L (21.6-31.8); Ferritin 27.4 ng/mL (10.0-291.0); Magnesium 1.8 mg/dL (1.5-2.4); Non-African American GFR(CKD) 48.2 (60.0-200.0); Phosphorus 2.9 mg/dL (2.4-5.1); Potassium 3.5 mmol/L (3.5-5.5); Uric Acid 6.7 mg/dL (2.9-7.7)
== END | disposition home or self-care (01) ==
LOC: LABWHC1 09:59
PROVIDERS: ATTEND Internal Medicine Nephrology
DX: N18.32 Chronic kidney disease, stage 3b (principal); E55.9 Vitamin D deficiency, unspecified; E21.3 Hyperparathyroidism, unspecified; M10.9 Gout, unspecified; N39.0 Urinary tract infection, site not specified; D64.9 Anemia, unspecified; R80.9 Proteinuria, unspecified
CPT/HCPCS: 36415; 80048; 81001; 82040; 82306; 82570; 82728; 83540; 83550; 83735; 83970; 84100; 84156; 84165; 84550; 85025; 86334; 86335

== ENCOUNTER → 2021-08-30 | Outpatient (CLI) | payer MEDICARE, OTHER ==
[2021-08-30 08:57] LABS: Protein/Creatinine Ratio,Urine 0.129
[2021-08-30 10:30] LABS: % Iron Saturation 8.24 (12.00-45.00); African American GFR (CKD) 64.7 (60.0-200.0); Anion Gap 11.6 mmol/L (10.00-18.00); BUN/Creat Ratio 21.4 Ratio (12.00-20.00); Blood Urea Nitrogen 21.4 mg/dL (9.0-27.0); Calcium 9.7 mg/dL (8.7-10.3); Carbon Dioxide 29.4 mmol/L (20.0-27.5); Magnesium 1.9 mg/dL (1.5-2.4); Non-African American GFR(CKD) 55.8 (60.0-200.0); Phosphorus 2.7 mg/dL (2.4-5.1); Potassium 3.2 mmol/L (3.5-5.5)
[2021-08-30 10:48] LABS: Albumin 4.1 g/dL (3.8-4.9); Ferritin 47.8 ng/mL (10.0-291.0)
[2021-08-30 10:56] LABS: Appearance,Urine Clear (Clear); Bilirubin,Urine Negative (Negative); Blood,Urine Negative (Negative); Color,Urine Yellow (Yellow); Ketones,Urine Negative (Negative); Nitrite,Urine Negative (Negative); Specific Gravity,Urine 1.012 (1.001-1.030)
[2021-08-30 11:04] LABS: Basophils # (A) 0.06 X 10*3/uL (0.00-0.10); Basophils % (A) 0.7 %; Eosinophils # (A) 0.53 X 10*3/uL (0.04-0.35); Eosinophils % (A) 6.4 %; HCT 37.5 % (37.2-46.3); HGB 11.8 g/dL (12.0-15.0); Immature Grans, Automated 0.4 %; Lymphocytes # (A) 1.49 X 10*3/uL (0.90-5.00); Lymphocytes % (A) 18.1 %; MCH 25.9 pg (27.0-32.0); MCHC 31.5 g/dL (32.0-37.0); MCV 82.4 fL (80.0-97.0); Mean Platelet Volume 10.7 fL (9.5-12.2); Monocytes % (A) 8.5 %; NRBC Per 100 WBC 0 /100 WBCS (0.0-0.0); Neutrophils # (A) 5.43 X 10*3/uL (1.80-7.70); Neutrophils % (A) 65.9 %; Platelet Count 280 X 10*3/uL (140-440); RBC 4.55 X 10*6/uL (4.10-5.20); RDW 14.8 % (11.5-14.5); WBC 8.24 X 10*3/uL (4.50-10.00)
== END | disposition home or self-care (01) ==
LOC: LABWHC1 08:02
PROVIDERS: ATTEND Internal Medicine Nephrology
DX: N18.32 Chronic kidney disease, stage 3b (principal); E55.9 Vitamin D deficiency, unspecified; N25.81 Secondary hyperparathyroidism of renal origin; M10.9 Gout, unspecified; N39.0 Urinary tract infection, site not specified; D64.9 Anemia, unspecified; R80.9 Proteinuria, unspecified
CPT/HCPCS: 36415; 80048; 81003; 82040; 82306; 82570; 82728; 83540; 83550; 83735; 83970; 84100; 84156; 84550; 85025

== ENCOUNTER → 2022-03-03 | Outpatient (CLI) | payer MEDICARE, OTHER | END | disposition home or self-care (01) | LOC: RADMAMWWP 07:54 | PROVIDERS: ATTEND Internal Medicine | DX: Z53.9 Procedure and treatment not carried out, unspecified reason (principal) ==

== ENCOUNTER → 2022-08-23 | Outpatient (CLI) | payer MEDICARE, OTHER ==
--- NOTE | 2022-08-23 10:19 | MM ---
Reason for Exam: Screening (asymptomatic). Last mammogram was performed 1 year(s) and 10 month(s) ago. Patient History: Menarche at age 18. First Full-Term at age 27. Left ovary removed at age 35. Right ovary removed at age 35. Hysterectomy at age 35. Postmenopausal. Estrogen for 7 years from age 50 until age 57. 03/2009, Benign Excisional Biopsy on the right side. Maternal cousin had breast cancer, age 60. Maternal aunt had breast cancer, age 60. Mother had breast cancer, age 60. Risk Values: Yesenia 5 year model risk: 3.7%. NCI Lifetime model risk: 8.5%. Prior Study Comparison: 10/01/2017 Bilateral Screening Mammogram, [facility]. 06/18/2019 Bilateral Screening Mammogram, [facility]. 11/16/2020 Bilateral Screening Mammogram, [facility]. Tissue Density: There are scattered fibroglandular densities. Findings: Analyzed By CAD. Pattern appears symmetrical and stable. A core marker is within the right breast. Benign calcifications present bilaterally. No suspicious groups of microcalcifications, spiculated or lobular masses, architectural distortion or other secondary signs of malignancy are mammographically apparent. Overall Assessment: Benign, BI-RAD 2 Management: Screening Mammogram of both breasts in 1 year. A negative mammogram report should not preclude additional follow up of suspicious palpable abnormalities. Patient should continue monthly self breast exam. A clinical breast exam by your physician is recommended on an annual basis and results should be correlated with mammographic findings. Electronically signed and approved by: Wilbert Sultana D.O. Radiologis
--- NOTE | 2022-08-23 10:53 | BD ---
EXAMINATION TYPE: Axial Bone Density DATE OF EXAM: 08/23/2022 CLINICAL HISTORY: 76 years old Female. ICD-10 CODE: N958 SCREENING Height: 61.2 in Weight: 176 lbs FRAX RISK QUESTIONS: Family History (Parent hip fracture): yes father History of Fracture in Adulthood: rt wrist age 70 Secondary Osteoporosis: 3. Menopause before 45: total hysterectomy age 32 RISK FACTORS HISTORY OF: History of Wrist Fracture: rt wrist age 72 Active: yes Diet low in dairy products/other sources of calcium: yes Postmenopausal woman: total hysterectomy age 32 MEDICATIONS: Additional Medications: blood pressure meds, stroke meds, reflux meds EXAM MEASUREMENTS: Bone mineral densitometry was performed using the [employer] System. Bone mineral density as measured about the Lumbar spine is: ----- L1-L4(G/cm2): 1.179 T Score Values are as follows: ----- L1: -0.9 ----- L2: -0.7 ----- L3: 0.8 ----- L4: 0.4 ----- L1-L4: 0.0 Z Score Values are as follows: ----- L1: 0.3 ----- L2: 0.6 ----- L3: 2.0 ----- L4: 1.6 ----- L1-L4: 1.2 Bone mineral density baseline Bone mineral density about the R hip (g/cm2): 0.893 Bone mineral density about the L hip (g/cm2): 0.987 T Score values are as follows: -----R Neck: -1.2 -----L Neck: -0.9 -----R Total: -0.9 -----L Total: -0.2 Z Score values are as follows: -----R Neck: 0.4 -----L Neck: 0.7 -----R Total: 0.4 -----L Total: 1.2 Bone mineral density baseline FRAX%s: The graph provided illustrates a 22.3% chance for a major osteoporotic fx and a 8.9% chance f or the hips probability for fx in 10 years time. IMPRESSION: Osteopenia (T Score between -2.5 and -1). There is slightly increased risk of fracture and the patient may be considered for treatment. Re-Screen 2-5 years. NOTE: T-SCORE=SD OF THE YOUNG ADULT MEAN.
== END | disposition home or self-care (01) ==
LOC: RADBDWWP 06:53
PROVIDERS: ATTEND Internal Medicine
DX: Z12.31 Encounter for screening mammogram for malignant neoplasm of breast (principal); M85.851 Other specified disorders of bone density and structure, right thigh; N95.8 Other specified menopausal and perimenopausal disorders; Z80.3 Family history of malignant neoplasm of breast
CPT/HCPCS: 77063; 77067; 77080

== ENCOUNTER → 2023-08-27 | Outpatient (CLI) | payer MEDICARE, OTHER ==
--- NOTE | 2023-08-28 12:41 | MM ---
Reason for Exam: Screening (asymptomatic). Last screening mammogram was performed 12 month(s) ago. Patient History: Menarche at age 18. First Full-Term at age 27. Left ovary removed at age 35. Right ovary removed at age 35. Hysterectomy at age 35. Postmenopausal. Estrogen for 7 years from age 50 until age 57. 03/2009, Benign Excisional Biopsy on the right side. Maternal cousin had breast cancer, age 60. Maternal aunt had breast cancer, age 60. Mother had breast cancer, age 60. Risk Values: Yesenia 5 year model risk: 3.7%. NCI Lifetime model risk: 8.0%. Prior Study Comparison: 03/04/2015 Bilateral Screening Mammogram, [facility]. 03/15/2015 Right Diagnostic Mammogram, [facility]. 06/21/2016 Bilateral Screening Mammogram, [facility]. 10/01/2017 Bilateral Screening Mammogram, [facility]. 06/18/2019 Bilateral Screening Mammogram, [facility]. 11/16/2020 Bilateral Screening Mammogram, [facility]. 08/23/2022 Bilateral MG 3D screening mammo w/cad, [facility]. Tissue Density: The breasts are heterogeneously dense, which may obscure small masses. Findings: Analyzed By CAD. There is no suspicious group of microcalcifications or new suspicious mass in either breast. Overall Assessment: Benign, BI-RAD 2 Management: Screening Mammogram of both breasts in 1 year. . Patient should continue monthly self-breast exams. A clinical breast exam by your physician is recommended on an annual basis. This exam should not preclude additional follow-up of suspicious palpable abnormalities. Note on Yesenia scores and lifetime risk: 1. A Yesenia score greater than 3% is considered moderate risk. If this is the case, consider specialist referral to assess eligibility for a risk reducing agent. 2. If overall lifetime risk for the development of breast cancer is 20% or higher, the patient may qualify for future screening with alternating mammogram and breast MRI. Electronically signed and approved by: Arben Mott M.D. Radiologis
== END | disposition home or self-care (01) ==
LOC: RADMAMWWP 07:32
PROVIDERS: ATTEND Internal Medicine
DX: Z12.31 Encounter for screening mammogram for malignant neoplasm of breast (principal); Z80.3 Family history of malignant neoplasm of breast; Z78.0 Asymptomatic menopausal state
CPT/HCPCS: 77063; 77067

== ENCOUNTER → 2024-10-29 | Outpatient (CLI) | payer MEDICARE, OTHER ==
[2024-10-29 15:53] LABS: HCT 37.2 % (37.2-46.3); HGB 11.6 g/dL (12.0-15.0); MCH 24.3 pg (27.0-32.0); MCHC 31.2 g/dL (32.0-37.0); MCV 77.8 FL (80.0-97.0); Mean Platelet Volume 10.5 FL (9.5-12.2); NRBC Per 100 WBC 0 X 10*3/uL (0.00-0.01); Platelet Count 217 X 10*3/uL (140-440); RBC 4.78 X 10*6/uL (4.10-5.20); RDW 14.8 % (11.5-14.5); WBC 7.55 X 10*3/uL (4.50-10.00)
[2024-10-29 16:39] LABS: NT-Pro-B-Type Natriuretic Pept 741 pg/mL (0-450)
[2024-10-29 16:46] LABS: ALT 27 U/L (8-44); AST 42 U/L (13-35); BUN/Creat Ratio 18.23 Ratio (12.00-20.00); Blood Urea Nitrogen 23.7 mg/dL (9.0-27.0); Calcium 9.2 mg/dL (8.7-10.3); Chloride 102 mmol/L (96-109); Chol/HDL Ratio 3.26 Ratio; Glucose 133 mg/dL (70-110); LDL Cholesterol,Calculated 102.1 mg/dL (0.0-131.0); Potassium 3.9 mmol/L (3.5-5.5); Sodium 142 mmol/L (135-145)
== END | disposition home or self-care (01) ==
LOC: LABWHC1 09:55
PROVIDERS: ATTEND Internal Medicine Cardiovascular Disease
DX: E78.2 Mixed hyperlipidemia (principal); R06.02 Shortness of breath
CPT/HCPCS: 36415; 80048; 80061; 83880; 84443; 84450; 84460; 85027

== ENCOUNTER → 2024-10-31 | Outpatient (CLI) | payer MEDICARE, OTHER ==
--- NOTE | 2024-10-31 10:45 | MM ---
Reason for Exam: Screening (asymptomatic). Last mammogram was performed 1 year(s) and 2 month(s) ago. Patient History: Menarche at age 18. First Full-Term at age 27. Left ovary removed at age 35. Right ovary removed at age 35. Hysterectomy at age 35. Postmenopausal. Estrogen for 7 years from age 50 until age 57. 03/2009, Benign Excisional Biopsy on the right side. Maternal cousin had breast cancer, age 60. Maternal aunt had breast cancer, age 60. Mother had breast cancer, age 60. Risk Values: Yesenia 5 year model risk: 3.7%. NCI Lifetime model risk: 7.5%. Prior Study Comparison: 11/16/2020 Bilateral Screening Mammogram, [facility]. 08/23/2022 Bilateral MG 3D screening mammo w/cad, [facility]. 08/27/2023 Bilateral MG 3D screening mammo w/cad, [facility]. Tissue Density: There are scattered areas of fibroglandular density. Findings: Analyzed By CAD. There is no suspicious group of microcalcifications or new suspicious mass in either breast. Surgical clip right breast. Overall Assessment: Benign, BI-RAD 2 Management: Screening Mammogram of both breasts in 1 year. . Patient should continue monthly self-breast exams. A clinical breast exam by your physician is recommended on an annual basis. This exam should not preclude additional follow-up of suspicious palpable abnormalities. Note on Yesneia scores and lifetime risk: 1. A Yesenia score greater than 3% is considered moderate risk. If this is the case, consider specialist referral to assess eligibility for a risk reducing agent. 2. If overall lifetime risk for the development of breast cancer is 20% or higher, the patient may qualify for future screening with alternating mammogram and breast MRI. [facility], , 10/31/2024 10:42 AM. Electronically signed and approved by: Jeremy Issa M.D. Radiologis
== END | disposition home or self-care (01) ==
LOC: RADMAMWWP 10:18
PROVIDERS: ATTEND Internal Medicine
DX: Z12.31 Encounter for screening mammogram for malignant neoplasm of breast (principal); R92.323 Mammographic fibroglandular density, bilateral breasts; Z78.0 Asymptomatic menopausal state; Z80.3 Family history of malignant neoplasm of breast
CPT/HCPCS: 77063; 77067

== ENCOUNTER → 2024-12-17 | Outpatient (CLI) | payer MEDICARE, OTHER ==
--- NOTE | 2024-12-17 08:53 | MR ---
EXAMINATION TYPE: MR brain and iac wo/w con DATE OF EXAM: 12/17/2024 7:14 AM COMPARISON: None. CLINICAL INDICATION: Female, 79 years old with history of ataxia, Ataxia, ronda hearing loss, hx of can cer TECHNIQUE: Multiplanar and multispin-echo imaging of the brain was performed both before and after the administr ation of contrast. High-resolution images are obtained of the internal auditory canals performed uti lizing 9 mL intravenous Gadobutrol contrast. FINDINGS: The ventricles, basal cisterns and sulci overlying the cerebral convexities are within normal limits. There is no evidence for midline shift or mass effect. Acute intracranial hemorrhage or extra-axial collection is not evident. There are no abnormal areas of increased or decreased signal intensity within the brain parenchyma. High-resolution imaging of the internal auditory canals fails demonstrate evidence for an enhancing a coustic schwannoma or cerebellopontine cistern angle mass. Following contrast administration, there is no evidence for pathologic enhancement or enhancing mass. The paranasal sinuses and mastoid air cells are well-aerated. IMPRESSION: 1. No evidence of acoustic schwannoma or cerebellopontine angle mass. [facility], , 12/17/2024 8:51 AM
--- NOTE | 2024-12-17 08:59 | MR ---
EXAMINATION TYPE: MR lumbar spine wo con DATE OF EXAM: 12/17/2024 6:32 AM COMPARISON: None. CLINICAL INDICATION: Female, 79 years old with history of Spinal stenosis, Low back pain into lt leg IV Contrast: cc (None if empty) TECHNIQUE: Multiplanar, multisequence images of the lumbar spine were acquired without IV contrast. L1-L2: Moderate decreased signal and loss of height compatible with degenerative disc disease. [employer] ior disc bulge without herniation or protrusion. No central stenosis. The foramina are patent bilater ally. L2-L3: Moderate decreased signal and loss of height compatible with degenerative disc disease. [employer] ior disc bulge without herniation or protrusion. No central stenosis. The foramina are patent bilater ally. L3-L4: Moderate decreased signal and loss of height compatible with degenerative disc disease. [employer] ior disc bulge without herniation or protrusion. Mild to moderate central stenosis. Mild bilateral fo raminal encroachment. L4-L5: Moderate decreased signal and loss of height compatible with degenerative disc disease. [employer] ior disc bulge without herniation or protrusion. Mild central stenosis noted. The foramina are patent bilaterally. L5-S1: Grade 1 anterolisthesis L5 on S1 measuring 5 mm. Moderate neural foraminal encroachment bilate rally. Moderate disc desiccation. Posterior disc bulge with right lateral recess stenosis. No evidenc e or central stenosis. No siobhan disc herniation. Lumbar segments are intact. No paraspinal masses are identified. Conus medullaris has a normal appe arance. IMPRESSION: 1. Multilevel degenerative disc disease and central stenosis as outlined above. [facility], , 12/17/2024 8:57 AM
== END | disposition home or self-care (01) ==
LOC: RADMRIMAIN 05:46
PROVIDERS: ATTEND Psychiatry & Neurology Neurology
DX: M48.061 Spinal stenosis, lumbar region without neurogenic claudication (principal); R27.0 Ataxia, unspecified; M51.369 Other intervertebral disc degeneration, lumbar region without mention of lumbar back pain or lower extremity pain
CPT/HCPCS: 72148; 70553; A9585